=== PATIENT | male | born 1935 | race African-American/Black ===

== ENCOUNTER 2019-07-24 05:54 | Inpatient (IN) | payer MEDICARE, OTHER, SELFPAY ==
[2019-07-18 11:37] VITALS: BMI 23.7
[2019-07-24] VITALS (17 sets, daily range): BP systolic 74–163; BP diastolic 40–89; PULSE 68–113; RESP 6–24; TEMP 35.7–36.8; O2SAT 73–100; BMI 21.6
--- NOTE | 2019-07-24 | DI.RAD.S_ITS ---
PROCEDURE: XR C-ARM UP TO 60 MIN COMPARISON: None. INDICATIONS: INTEROPERATIVE RIGHT HIP FINDINGS: No images were obtained. IMPRESSION: Fluoroscopy guidance was provided intraoperatively for right hip surgery. No images were obtained. Dictated by: Demetri Avila M.D. on 08/25/2019 at 15:48 Approved by: Demetri Avila M.D. on 08/25/2019 at 15:52
--- NOTE | 2019-07-24 06:00 | DI.RAD.S_ITS ---
PROCEDURE: XR HIP W PEL IF DONE RT 2V INDICATIONS: post operative right hip TECHNIQUE: AP pelvis and lateral view of the right hip acquired. COMPARISON: [facility], CR, XR PELVIS 1 OR 2 VIEWS, 06/16/2019, 11:56. FINDINGS: Bones: Patient is status post interval redo right hip arthroplasty, with hardware components in expected positions. The hip joint appears congruent. The visualized bony structures appear intact. Soft tissues: Overlying postoperative changes are noted. No suspicious soft tissue densities. Left femoral artery in tandem stents. Staple line overlying the right hip. IMPRESSION: Satisfactory appearance of the right total hip redo arthroplasty. Dictated by: Chuy Mcgovern M.D. on 07/24/2019 at 12:44 Approved by: Chuy Mcgovern M.D. on 07/24/2019 at 12:46
[2019-07-24] MEDS: PREGABALIN 75 MG CAPSULE PO (07:01)
[2019-07-24] MEDS: CELECOXIB 200 MG CAPSULE PO (07:01)
[2019-07-24] MEDS: ACETAMINOPHEN 325 MG TABLET 975 MG PO (07:01)
[2019-07-24] MEDS: LACTATED RINGERS 1,000 ML 42 ML IV ×2 (07:10→09:27)
--- NOTE | 2019-07-24 07:45 | PM.PREOP ---
Pre-operative Note Interval Note History & Physical reviewed/Exam performed by Physician: Yes Changes to H&P: No H&P completed within 30 days and has changed as indicated here:: Plan for revision R FRANKI
[2019-07-24] MEDS: CEFAZOLIN 2 GM/100 ML FROZ.PIGGY IV ×2 (08:00→16:35)
--- NOTE | 2019-07-24 08:29 | SUR.OPER ---
Lateral on padded OR bed. Gel axillary roll. Arms secured on padded armboard with pillow supporting top arm. Padded hip positioner braces x4 - anterior and posterior chest and pelvis. Additional gel pad used anterior pelvis. Gel pad under bottom leg from knee to foot and secured with tape over sheet.
[2019-07-24] MEDS: ROPIVACAINE 0.5% PF 5 MG/ML 20ML VIAL 60 ML INJ (09:14)
[2019-07-24] MEDS: KETOROLAC 30 MG/ML VIAL IV (09:14)
[2019-07-24] MEDS: VANCOMYCIN 1,000 MG VIAL 1000 MG TOP (09:14)
[2019-07-24] MEDS: MORPHINE 4 MG/ML INJ INJ (09:15)
--- NOTE | 2019-07-24 11:44 | P.OP_ITS ---
Operative Date/Time/Diagnoses Date of procedure: 07/24/19 Time of procedure: 11:44 Pre-op diagnosis: subsided R FRANKI Post-op diagnosis: same Procedure & Clinicians Procedure: Revision right total hip arthroplasty. Same procedure as scheduled: Yes Indications: Subsided right femoral stem, leg length discrepancy. Surgeon: Abhilash Connor Enhanced Environmental Operator: Macie Garcia Anesthesia Type: General Operative Notes Findings: Subsided loose femoral stem. Closure Type: non-primary Specimen(s): other (Three tissue cultures sent.) Prosthetic devices, grafts, tissues, transplants, or devices: Garcia [employer] Nephew R3 56 x 36 mm poly. Biomet Jasen 18 mm x 190 mm stem with a size a 60 mm proximal body Biomet -3 cobalt chrome head. Estimated Blood Loss (mL): 400 Blood products transfused: none Procedure in detail: Patient was met in the preoperative holding area where the site and side of surgery marked by MD. All last minute questions were answered. Patient was brought back in the operating room where he was induced under general anesthesia using placed in the left lateral decubitus position all bony prominences were well padded. The right hip was then prepped and draped in normal sterile fashion. The previous surgical scar was marked out. Surgical time-out was performed verifying the site and side of surgery as well as the name of the patient. The previous surgical scar was ellipsed out using a 10 blade. A combination of 10 blade and electrocautery used to dissect down to the level of the ITB and all sutures counter long way from previous surgery remained were removed. ID band was incised using 10. Blade. A combination of blunt dissection and sharp dissection was used to free up the ID band from the underlying musculature. A Cobra was placed over the anterior aspect of the trochanter. The previous short external rotator repair was taken down and a capsular flap was created intact. Three cultures were taken at this point. At this point and focus on freeing up scar tissue which was dissected away using combination of electrocautery and sharp dissection. At this point the hip was then dislocated the head was removed from the trunnion of the implant. The stem was noted to be grossly loose. A high-speed bur was used to free up the lateral shoulder of the implant from the overgrown greater trochanter. The process chemist handle for the stem was then screwed into place and the stem was malleted out. At this point a cement extractors used to remove the film from inside the femoral canal. A short sharp tip drill was used at this point to try to gain access to the femoral canal I had difficulty with this point and I was concerned that had perforated the cortex. A blunt tip canal finer was used and would not perforate the cortex but a thinner guid tip guidewire would perforate through the cortex. This point fluoroscopy was used to verify our positioning and a stiff conical Reamer was used to open the canal. This was then followed by placing a ball-tipped guidewire under fluoroscopic imaging down the center of the canal. Flexible reamers were then used to open up the canal. This was then followed by conical Jasen reamers in size 190. Began with a size 15 went to up to a size 18 1 mm at a time. This was reamed to a depth of 80 at the tip of the greater trochanter. The final Jasen stem 190 x 18 mm was selected with the flange anteriorly. This was malleted into place. The proximal body was then prepped off the final stem. We trialed with multiple iterations of proximal body length and femoral head length. We determined that a size 60 proximal body size a was appropriate size. Trials were then removed and the femur was retracted anteriorly with a Cobra which lasted visualized the acetabular cup this was removed with the extractor. A new polyethylene liner was then malleted into place. The wound was thoroughly irrigated with normal saline followed by iodine followed by pulse lavage. The final implanted proximal body was placed and the screw was torqued into place. A size 36 chromium head -3 was selected and malleted onto the trunnion. This was then reduced and brought through final range of motion. The capsular flap was repaired to the gluteus medius and short external rotators were repaired back to the posterior aspect of the greater trochanter. The ITB was closed using 1. Vicryl followed by running 1. Vicryl in the superior gluteal fascia followed by 1. Vicryl running in the fat layer. This was followed by a 2. Vicryl in the subcutaneous layer followed by thaddeus on skin and an Aquacel dressing. Complications: none Post-operative Condition: stable Disposition: PACU Plan for aftercare: Partial weight bearing RLE, posterior hip precautions
--- NOTE | 2019-07-24 12:10 | SUR.PHASEI ---
Patient arrived in PACU with oral airway. Hypotensive. RN did jaw thrust, fluids wide open and placed in reverse trendleburg.
--- NOTE | 2019-07-24 12:11 | SUR.PHASEI ---
Oral airway out. HOB at 30 degrees. Patient QUIROGA's x 4. Denies pain and tolerating ice chips.
[2019-07-24] MEDS: LACTATED RINGERS 1,000 ML 125 ML IV (13:39)
--- NOTE | 2019-07-24 14:52 | PC.NURSE ---
Patient arrives to floor alert and oriented. CMS intact. Patient denies pain. Ordered IV fluids administered. SCDs placed. Surgical site CDI. Ice pack in place. Care is ongoing.
[2019-07-24 16:12] LABS: Add Manual Diff / Slide Review NO; Basophils Absolute Auto 100 /uL (0-100); Basophils Percent Auto 0.5 % (0-2); Eosinophils Absolute Auto 0 /uL (0-450); Eosinophils Percent Auto 0.2 % (2-4); Hematocrit 32.5 % (41-53); Lymphocytes Absolute Auto 1300 /uL (1100-4500); Lymphocytes Percent Auto 7.9 % (25-40); Mean Corpuscular HGB Conc 33.8 % (30-36); Mean Corpuscular Hemoglobin 31.1 PG (26-34); Monocytes Absolute Auto 1100 /uL (0-900); Monocytes Percent Auto 6.7 % (3-14); Neutrophils Absolute Auto 14100 /uL (1500-7000); Neutrophils Percent Auto 84.7 % (50-75); Platelet Count 189 X10^3/uL (150-400); Red Blood Cell Count 3.53 X10^6/uL (4.5-5.9); Red Cell Distribution Width 13.7 % (11.6-14.8); White Blood Cell Count 16.7 X10^3/uL (4.5-11.0)
[2019-07-24] MEDS: ACETAMINOPHEN 325 MG TABLET 650 MG PO ×2 (16:37→20:14)
--- NOTE | 2019-07-24 16:50 | PC.NURSE ---
Addendum entered by Lizett Bonilla R.N. 07/24/19 22:22: MD return call, 1000cc bolus infusing as per orders. Will assess ability to void. Call light w/in reach, bed alarm on for pt safety. Continue w/plan of care. Addendum entered by Lizett Bonilla R.N. 07/24/19 20:25: Pt had 200cc emesis at this time. B/P 95/48 P= 104 Pt has not voided since prior to surgery, Bladder scan = 11cc. Call placed to Dr. Connor. Call light w/in reach, bed alarm on for pt safety. Original Note: Pt resting quietly at this time. Denies discomfort Lungs clear, SpO2 96% RA IV LR @ 125cc/hr infusing into the right arm via pump w/o incidence Aquacell dsg CDI. Call light w/in reach. Bed alarm on for pt safety.
--- NOTE | 2019-07-24 17:11 | PT-IP ANOTE ---
Attempted physical therapy evaluation. Pt sat up on edge of bed. He c/o feeling light-headed. Pt started becoming less responsive so he was returned to supine. Vital Signs: Initial return to supine BP 78/63 and HR 240 Supine BP 67/41, HR 103 Trendelenburg position: BP 96/67 and HR 97 Return to flat in supine BP 77/51 and HR 98 He immediately became more responsive once back in supine. He symptoms of being light headed slowly resolved when back in bed. His Nurse and TRANSITION RN were notified. Pt left lying flat in bed with friends arrival to visit. Post-op packet left in his room. Posterior hip precautions posted in his room. Will follow-up tomorrow.
[2019-07-24] MEDS: DOCUSATE 100 MG CAPSULE PO (20:14)
[2019-07-24] MEDS: raNITIdine 150 MG CAPSULE PO (20:14)
[2019-07-24] MEDS: ASPIRIN EC 81 MG TABLET PO (20:15)
[2019-07-24] MEDS: SODIUM CHLORIDE 0.9% 1,000 ML 1000 ML IV (22:19)
[2019-07-25] VITALS (8 sets, daily range): BP systolic 94–127; BP diastolic 44–70; PULSE 97–111; RESP 15–18; TEMP 35.9–37.6; O2SAT 93–98
[2019-07-25] MEDS: CEFAZOLIN 2 GM/100 ML FROZ.PIGGY IV (00:53)
[2019-07-25] MEDS: LACTATED RINGERS 1,000 ML 125 ML IV ×2 (01:00→11:09)
[2019-07-25 05:28] LABS: Hematocrit 21.6 % (41-53); Hemoglobin 7.4 g/dL (13.5-17.5)
--- NOTE | 2019-07-25 06:59 | PC.NURSE ---
Pt is AxOx3, Vitals are much better than previous shift. However when we tried to get patient to stand up to void in urinal his SBP dropped into the high 70s, HR 130s, and he vomitted 100cc bile. He had not voided since surgery, bladder scanned at [address] Connor notified and said to straight cath patient. He had a straight cath at 0600 which put out 200mL of tres urine. He reports no pain. IVF running
--- NOTE | 2019-07-25 07:44 | P.PN_ITS ---
Subjective Subjective Date Patient Seen: 07/25/19 Time Patient Seen: 07:44 Interval history: Patient is POD#1 s/p right total hip revision with Dr. Connor. Pain has been well controlled. He has not mobilized yet with PT. One episode of emesis and lightheadedness when he attempted to sit at edge of bed. Denies any chest pain or shortness of breath. Exam Vital Signs (past 8 hours): - 07/24/19 23:50 07/25/19 05:07 Temperature 97.5 F L 96.7 F L Pulse Rate 108 H 97 H Respiratory Rate 24 16 Blood Pressure 105/56 L 127/55 L Pulse Oximetry 93 93 Oxygen Delivery Method Room Air Oxygen Flow Rate 0 Narrative Exam Narrative: 84 year old male resting comfortably in bed. Alert and oriented in no acute distress. Dressing in place over right hip is CDI, minimal shadow drainage. Patient able to flex and extend the foot and ankle. Palpable pedal pulse. Objective Labs Result Diagrams: 07/25/19 05:10 Labs: Laboratory Results - last 24 hr 07/24/19 07/25/19 13:48 05:10 WBC 16.7 H RBC 3.53 L Hgb 11.0 L 7.4 L Hct 32.5 L 21.6 L MCV 92.0 MCH 31.1 MCHC 33.8 RDW 13.7 Plt Count 189 Neut % (Auto) 84.7 H Lymph % (Auto) 7.9 L [place] % (Auto) 6.7 Eos % (Auto) 0.2 L Baso % (Auto) 0.5 Neut # (Auto) 66552 H Lymph # (Auto) 1300 [place] # (Auto) 1100 H Eos # (Auto) 0 Baso # (Auto) 100 Assessment & Plan Assessment & Plan narrative: Patient progressing as expected postoperatively. Does have some anemia due to blood loss from surgery with symptomatic hypotension. H&H this morning of 7.4/21.6. Will bolus 1L and reevaluate. Has not voided since surgery, likely from spinal anesthesia. Will place prieto catheter for 24hrs then remove. Will mobilize with PT. Patient is to follow posterior hip precautions with partial weight bearing of 50%. Likely discharge to home in the next 1-2 days. Quality VTE Deep Vein Thrombosis/Pulmonary Embolism Present on Admission: No
[2019-07-25] MEDS: SODIUM CHLORIDE 0.9% 1,000 ML 1000 ML IV (07:57)
[2019-07-25] MEDS: ACETAMINOPHEN 325 MG TABLET 650 MG PO ×3 (08:50→20:26)
[2019-07-25] MEDS: ASPIRIN EC 81 MG TABLET PO ×2 (08:50→20:26)
[2019-07-25] MEDS: DOCUSATE 100 MG CAPSULE PO ×2 (08:50→20:26)
[2019-07-25] MEDS: raNITIdine 150 MG CAPSULE PO ×2 (08:50→20:26)
[2019-07-25] MEDS: ROSUVASTATIN 10 MG TABLET 5 MG PO (08:50)
--- NOTE | 2019-07-25 11:34 | PT.IIE ---
Current Diagnoses Broken internal right hip prosthesis, initial encounter (07/24/19) Surgery Performed Operation Date: 07/24/19 07:45 Actual Procedures p Total Hip Arthroplasty Revision - both components(Right) - Abhilash Connor MD Surgical History (Last Updated 07/18/19 @ 12:32 by Jeannie Blanton, RN) History of arthroplasty of left hip (Acute 01/31/15) History of arthroplasty of right hip (Acute ~09/2013) History of lymph node excision (Acute) Hx of bilateral cataract extraction (Acute) Hx of cardiac catheterization (Acute ~04/2013) Hx of heart artery stent (Acute ~2007) Medical History (Last Updated 07/18/19 @ 12:00 by Jeannie Blanton RN) Aortic valve disorder (Acute) CAD (coronary artery disease) (Acute) Cardiomyopathy (Acute) CKD (chronic kidney disease), stage III (Acute) GERD (gastroesophageal reflux disease) (Acute) History of colon polyps (Acute) HTN (hypertension) (Acute) Orthostatic hypotension (Acute 01/31/15) Osteoarthritis (Acute) Postoperative anemia (Acute) Pulmonary sarcoidosis (Acute) PVD (peripheral vascular disease) (Acute) Renal insufficiency (Acute) Stenosis of peripheral vascular stent (Acute ~2009) Physical Therapy Inpatient Evaluation/Re-Eval M1 PT/OT-IP Prior Functional Status Start: 07/25/19 08:44 Freq: NEEDED Status: Active Protocol: Document 07/25/19 11:02 AW (Rec: 07/25/19 11:34 AW [id number]) Medical Review Prior Functional Status Medical History Reviewed Yes Diet/Fluid Consistency Regular Communication WNL Mobility and Gait Pt reports pain has been worsening and he has been using a SPC ~50% of the time for the past three months and was limited to long parking lot distances. Activities of Daily Living and IADL's Pt reports he has been independent with ADL's although slower than normal with LB dressing tasks. Prior Functional Level (Other details) Pt drives. Social History Household Members spouse,children Living Arrangements House Number of Floors (Floors) One Floor Number of Stairs To Enter/Railing? 2 HEATHER through garage. Shelves available for balance but not for weightbearing. Home Environment High Toilet,Walk in Shower Home Equipment Front Wheel Walker,Straight Cane,Manual Wheelchair,Raised Toilet Seat w/Armrests,Long Handled Shoe Horn Employment Status Retired Additional Social History Comment Pt is retired from the [employer]. He lives with his , Nicole, and his daughter, Nakita. His sister, Elaine, lives in [place] but is staying with the family as long as needed in order to provide additional help during recovery. M2 PT-IP Current Condition Start: 07/25/19 08:44 Freq: NEEDED Status: Active Protocol: Document 07/25/19 11:02 AW (Rec: 07/25/19 11:34 AW [id number]) Physical Therapy Current Condition Current Condition Evaluation Date 07/25/19 Treatment Diagnosis R FRANKI revision, impaired mobility Onset Date 07/24/19 Precautions Posterior Hip Precautions No Hip Flexion > 90 degrees,No Hip Internal Rotation,No Hip Adduction Weight Bearing Status Weight Bearing Status Partial Weight Bearing Allowed Weight Bearing Amount (enter % 50% RLE or #) (%) M3 PT-IP Subjective Start: 07/25/19 08:44 Freq: NEEDED Status: Active Protocol: Document 07/25/19 11:02 AW (Rec: 07/25/19 11:34 AW [id number]) Subjective Physical Therapy Visit Type Type Initial Evaluation Visit Start Time 10:00 Visit Stop Time 10:30 Total Visit Minutes 30 Notes WB orders unclear at time of eval. One order stated PWB without percentage. Second order stated WBAT. Proceeded with TTWB for evaluation. Was able to clarify with PA after eval that WB status should be 50%. PA to update orders. H&H low this mornin.4/21.6 Physical Therapy Visit Comments Patient Comments Pt is willing to participate with PT Patient Goals Pt hopes to discharge home with assist from his family Therapy Pain Assessment Pain When Pain Assessed During Mobility Pain Present Pain Present Denied Pain M4 PT-IP Mobility and Gait Start: 07/25/19 08:44 Freq: NEEDED Status: Active Protocol: Document 07/25/19 11:02 AW (Rec: 07/25/19 11:34 AW [id number]) PT-Bed Mobility Assessment Supine to Sit Supine to Sit Contact Guard Assistance,1 Person Assistance,Head of Bed Elevated,Bedrails Scooting Scooting to Edge of Bed Standby Assistance PT-Transfer Assessment Sit to and From Stand Sit to and from Stand Contact Guard Assistance,1 Person Assistance,Use of Upper Extremities Equipment Transfer Assistive Device Gait Belt,Front Wheeled Walker Orthotic/Prosthetic Devices or Brace: No Transfers Transfer Destination Chair Transfer Technique Stand Step Pivot Transfer Ability Level of Assist Contact Guard Assistance, Minimal Assistance,1 Person Assistance,Use of Upper Extremities Comments Mobility Comments Pt was sitting up in bed upon PT arrival. With HOB elevated ~45 degrees, BP was 85/59 and HR 125. After supine exercise, BP nicole to 131/72 and HR 125. Pt completed supine to sit with HOB elevated, use of bed rails, CGA to support his operative leg, and cues to maintain hip precautions. Sitting EOB, BP was 109/49 and HR 141 with pt reporting no symptoms of lightheadedness, nausea, or shoulder/neck pain. Pt was able to stand using FWW CGA and cues to maintain upright trunk to avoid flexion >90 degrees. He stood using FWW and with TTWB to 25% PWB on the RLE and pivot transferred to the chair by pivoting on his left foot. Pt was positioned in the chair with legs elevated, call light and table within reach. BP sitting in chair was 105/52 and HR 141. Gait Assessment Gait Gait Assistance Required: Contact Guard Assist Distance (Feet) 2 Able to Maintain Weight Bearing Status Yes During Gait Assistive Devices Assistive Device Gait Belt,Front Wheeled Walker Orthotic/Prosthetic Devices or Brace: No Gait Deviations General Gait Pattern Antalgic,Flexed Trunk Factors Limiting Gait Function Factors Limiting Gait Function Decreased Activity Tolerance, Decreased Strength,Limited Range of Motion Comments Gait Comments See mobility comments Stair Climbing Assessment Comments Stair Climbing Comments Not assessed. PT-Balance Assessment Sitting Balance and Reactions Static Sitting Balance Ability Good Dynamic Sitting Balance Ability Good Standing Balance and Reactions Static Standing Balance Ability Good Dynamic Standing Balance Ability Fair Device Used FWW M5 PT-IP Objective Assessments Start: 07/25/19 08:44 Freq: NEEDED Status: Active Protocol: Document 07/25/19 11:02 AW (Rec: 07/25/19 11:34 AW [id number]) Orientation Orientation/Cognition Level of Alertness Confusional State Orientation Name,Month,Place,Situation Language Function Ability No Deficits Noted Safety Awareness Decreased Safety Awareness Comments Pt had difficulty recalling posterior hip precautions. Gross Range of Motion Upper Extremity ROM Assessment Within Functional Limits Lower Extremity ROM Assessment Right Impaired Strength Upper Extremity Strength Assessment Within Functional Limits Lower Extremity Strength Assessment Right Impaired Hip L 4/5 Knee L 5/5 Ankle B 4+/5 Coordination Assessment Gross Coordination Gross Coordination WNL Sensation Assessment Sensation Gross Sensation WNL Muscle Tone Muscle Tone WNL No Muscle Tone Location Bilateral Upper Extremity Severity of Tone Mild Manifistation of Tone Resting Tremors Comments Muscle Tone Comments Pt states BUE tremors were not present prior to surgery. M6 PT-IP Treatment Start: 07/25/19 08:44 Freq: NEEDED Status: Active Protocol: Document 07/25/19 11:02 AW (Rec: 07/25/19 11:34 AW [id number]) Physical Therapy Treatment Exercises Exercises Ankle Pumps,Gluteal Sets,Quad Sets,Heel Slides Education Education Provided Precautions,Weight Bearing Status,Post-Op Packet,Safety Other Treatments Other Treatment Performed Provided education on role of PT, plan of care, weightbearing status, and safe use of FWW. M7 PT-IP Assessment and Plan Start: 07/25/19 08:44 Freq: NEEDED Status: Active Protocol: Document 07/25/19 11:02 AW (Rec: 07/25/19 11:34 AW [id number]) PT Summary Assessment and Plan Potential Rehabilitation Potential Good Status of Condition at Evaluation Evolving Summary Impairments Pain,ROM,Strength,Balance, Cognition,Bed Mobility, Transfers,Gait,Activity Tolerance Assessment Summary Fran is an 84 yo man seen for PT evaluation on POD1 following R FRANKI revision with posterior approach. At time of evaluation, WB status was unclear with orders for both WBAT and PWB (without percentage). Ortho PA since clarified that WB status should be PWB 50% RLE. At baseline, this patient was able to walk long parking lot distances with or without SPC and had been using a SPC ~50% of the time recently due to increased hip pain. On evaluation, pt was able to complete bed mobility and transfer to chair CGA with FWW . He had difficulty remembering his posterior hip precautions and will require frequent reorientation to same . Pt will need to be seen again to assess gait with FWW, stairs, and to initiate caregiver training with family - his sister, in particular. Depending on progress with acute care PT, pt will likely be safe to discharge home with family assist and home health vs outpatient PT. Goals Bed Mobility Goal Independent Transfer Goal Standby Assistance,Front Wheeled Walker Gait Goal Standby Assistance,Front Wheel Walker Gait Distance 150 Other Goals -up/down 2 stairs with SPC or LRAD to maintain 50% PWB RLE SBA Days to Meet Goals 5 Frequency of Treatment Frequency Of Treatment Twice a Day Treatment Plan Physical Therapy Treatment Plan Bed Mobility Training,Transfer Training,Gait Training, Therapeutic Exercise,Balance Retraining,Post Op Education, Discharge Planning,Hot or Cold Pack,Neuromuscular Re-ed, Coordination Retraining,Manual Therapy Other Recommendations and Next Treatment review hip precautions; gait Focus training with FWW 50% PWB RLE; assess stairs if able; Recommendations To Nursing Amount of Assist Needed 1 Person Assist Discharge Recommendations PT Discharge Recommendations Home with Assistance,Home Health,Outpatient PT Other Discharge Recommendations home with assist and HH vs OP PT depending on progress Transportation Needs at Discharge Private Vehicle
--- NOTE | 2019-07-25 11:55 | PC.NURSE ---
Addendum entered by Leona Nath R.N. 07/25/19 13:57: Patient has not voided but a couple of drops in the urinal. came around to see patient and states to place a catheter. He has been drinking plenty of water , just difficulty urinating. Original Note: Patient has been having issues with voiding. He is trying to use the urinal right now. If unable, we will bladder scan him and then place a prieto for 24 hours. Dressing to hip is cdi, up with PT and patient is 50% weight bearing on his r.hip. Up in chair now, and he is going to have his lunch.
--- NOTE | 2019-07-25 13:27 | CM.DANOTE ---
Patient is an 84 year old male who was admitted on 07/24/19 for Hip surgery. Pt has [facility] and [employer] for insurance and his PCP is Dr. Raghav Carpenter. EMR was reviewed. Per MD, pt had surgery yesterday and tolerated well but PT had to postpone inital eval due to BP issues. Per RN, pt has had some urinary retention issues. Per PT eval today, recommending safe d/c home with family assist and outpt vs HH pending progress. SW met bedside with pt and explained role and updated white board and pt confirms he lives at home in [place] with his spouse, adult Dtr, and now sister has flown in to stay and provide additional assist at d/c. Pt denies any hx of HH or SNF and SW discussed the current recommendation of HH vs outpt PT and discussed HH services and frequency. Pt states he thinks his preference is to d/c home with his established outpt PT provider and declines HH at this time. Pt confirms that his sister plans to provide transport home when stable and pt is hopeful he will be able to d/c by tomorrow. Plan: SW to follow to confirm pt still declines HH and stable for d/c home with multiple family member assist and outpt PT. BO Szymanski Discharge Planning/Care Management CM Discharge Assessment Start: 07/25/19 13:25 Freq: Status: Active Protocol: Document 07/25/19 13:25 BF (Rec: 07/25/19 13:27 [id number]) Discharge Planning Assessment Assigned Information Technology Teacher BO Guzman Advance Directives? Yes Advance Directives on File Yes History Provided By Patient,Medical Record Has Patient been admitted in last 30 No days? Prior Living Arrangements House Household Members spouse,children Type of transporation used prior to Relies on Others admit Independent with ADL's Yes Is patient alert and oriented? Yes Caregiver for Another No Patient/Family Preference OP PT Therapy Barriers to Discharge No Discharge Plan Home Community Services Physical Therapy Transportation Arrangement Sister plans to provide transport home when stable Referrals Initiated None needed Whiteboard Updated in Patient Room with Yes name and ext. # of Information Technology Teacher Review Status In Process Please Provide Date Initial DC 07/25/19 Assessment Was Performed Next Review Type Continued Stay Review Pre-Anesthesia Assessment Start: 07/18/19 11:37 Freq: Status: Active Protocol: Document 07/18/19 11:37 CAB (Rec: 07/18/19 12:19 CAB [id number]) Pre-Anesthesia Assessment PAC Comment Unable to reach pt for scheduled PAC phone assessment , chart review only. Patient Information Reviewed Via Chart Review Diagnostic Results EKG Comment Outside EKG 03/17/19 scanned in, no labs available at time of chart review Primary Care Provider Raghav Carpenter Seen Specialist in Last 12 Months Yes Specialist Seen Temporary Help Agency Referral Clerk,Orthopedist Primary Language [facility] Therapy Aide Required No Height 182.88 cm Weight 79.379 kg Body Mass Index (BMI) 23.7 Visual Assist Glasses Dentition Type Full- Upper Anesthesia Review Requested No alcohol intake current Smoking Status Never smoker Pain Present Pain Reported Musculoskeletal Symptoms Joint Pain Patient is completely paralyzed or No completely immobile Mental Status Oriented to own ability Currently Taking a Beta Mildred Yes: Carvedilol Hx Syncope or Dizziness Yes: Syncope-vasovagal Anti-Coagulant Therapy Yes: 81mg ASA daily Has a Temporary Help Agency Referral Clerk Yes: Dr. Diallo Cardiac Testing Yes: Echo 04/04/19 EF:55% Hx Pacemaker/ICD No Pacemaker Rep Required? No Comment Cardiac records scanned to record Diabetes No Presence of External or Internal Medical Yes: Cardiac stents x5, bilat Devices hip prosthesis, bilat eye lens , left femoral stent Marital Status Lives With spouse Advance Directives? Yes Advance Directives on File Yes
--- NOTE | 2019-07-25 15:59 | PT.IPTN ---
Current Diagnoses Broken internal right hip prosthesis, initial encounter (07/24/19) Surgery Performed Operation Date: 07/24/19 07:45 Actual Procedures p Total Hip Arthroplasty Revision - both components(Right) - Abhilash Connor MD Physical Therapy Treatment Note M2 PT-IP Current Condition Start: 07/25/19 08:44 Freq: NEEDED Status: Active Protocol: Document 07/25/19 11:02 AW (Rec: 07/25/19 11:34 AW [id number]) Physical Therapy Current Condition Current Condition Evaluation Date 07/25/19 Treatment Diagnosis R FRANKI revision, impaired mobility Onset Date 07/24/19 Precautions Posterior Hip Precautions No Hip Flexion > 90 degrees,No Hip Internal Rotation,No Hip Adduction Weight Bearing Status Weight Bearing Status Partial Weight Bearing Allowed Weight Bearing Amount (enter % 50% RLE or #) (%) M3 PT-IP Subjective Start: 07/25/19 08:44 Freq: NEEDED Status: Active Protocol: Document 07/25/19 15:44 AW (Rec: 07/25/19 15:59 AW [id number]) Subjective Physical Therapy Visit Type Type Treatment Note Visit Start Time 15:24 Visit Stop Time 15:42 Total Visit Minutes 18 Notes WB status has been clarified to 100# RLE or ~50% Number of IMAGE EDITOR Visits 0 Physical Therapy Visit Comments Patient Comments Pt resting in bed but willing to participate with PT Therapy Pain Assessment Pain When Pain Assessed During Mobility Pain Present Pain Present Pain Reported Location right hip Intensity 4 Scale Used Numeric (1 - 10) Pain Management Techniques Re-positioning,Timing of Activity with Medications M4 PT-IP Mobility and Gait Start: 07/25/19 08:44 Freq: NEEDED Status: Active Protocol: Document 07/25/19 15:44 AW (Rec: 07/25/19 15:59 AW [id number]) PT-Bed Mobility Assessment Supine to Sit Supine to Sit Standby Assistance,1 Person Assistance Sit to Supine Sit to Supine Standby Assistance,1 Person Assistance Scooting Scooting to Edge of Bed Standby Assistance Scooting Up and Down in Bed Standby Assistance PT-Transfer Assessment Sit to and From Stand Sit to and from Stand Contact Guard Assistance,1 Person Assistance,Use of Upper Extremities Equipment Transfer Assistive Device Gait Belt,Front Wheeled Walker Orthotic/Prosthetic Devices or Brace: No Transfers Transfer Destination Bed Transfer Technique pt ambulated with FWW Transfer Ability Level of Assist Standby Assistance,Use of Upper Extremities Comments Mobility Comments Pt sitting up in bed upon PT arrival. With HOB flat, pt completed supine to sit SBA and without use of bed features. He did require one cue to maintain posterior hip precautions. Gait Assessment Gait Gait Assistance Required: Contact Guard Assist Distance (Feet) 100 Able to Maintain Weight Bearing Status Yes During Gait Assistive Devices Assistive Device Gait Belt,Front Wheeled Walker Orthotic/Prosthetic Devices or Brace: No Gait Deviations General Gait Pattern Antalgic,Decreased Stride Length,Decreased Feet Clearance,Flexed Trunk,Step-to Gait,Wide Based Gait Factors Limiting Gait Function Factors Limiting Gait Function Decreased Activity Tolerance, Decreased Strength,Limited Range of Motion Comments Gait Comments Pt ambulated in the halls after reviewing weightbearing status of 50% on RLE. He ambulated with FWW CGA with one posterior loss of balance evident on initial standing from which he was able to recover independently. Pt denied symptoms of lightheadedness, nausea, neck/ shoulder pain. Gait was notable for circumduction of the RLE which pt attempted to correct by using the visual cue of lines on the floor tiles to ensure he was advancing his RLE in a straight line. Once pt was able to correct his circumduction, he appeared to vault on the RLE. Stair Climbing Assessment Comments Stair Climbing Comments Not assessed M5 PT-IP Objective Assessments Start: 07/25/19 08:44 Freq: NEEDED Status: Active Protocol: Document 07/25/19 11:02 AW (Rec: 07/25/19 11:34 AW [id number]) Orientation Orientation/Cognition Level of Alertness Confusional State Orientation Name,Month,Place,Situation Language Function Ability No Deficits Noted Safety Awareness Decreased Safety Awareness Comments Pt had difficulty recalling posterior hip precautions. Gross Range of Motion Upper Extremity ROM Assessment Within Functional Limits Lower Extremity ROM Assessment Right Impaired Strength Upper Extremity Strength Assessment Within Functional Limits Lower Extremity Strength Assessment Right Impaired Hip L 4/5 Knee L 5/5 Ankle B 4+/5 Coordination Assessment Gross Coordination Gross Coordination WNL Sensation Assessment Sensation Gross Sensation WNL Muscle Tone Muscle Tone WNL No Muscle Tone Location Bilateral Upper Extremity Severity of Tone Mild Manifistation of Tone Resting Tremors Comments Muscle Tone Comments Pt states BUE tremors were not present prior to surgery. M6 PT-IP Treatment Start: 07/25/19 08:44 Freq: NEEDED Status: Active Protocol: Document 07/25/19 15:44 AW (Rec: 07/25/19 15:59 AW [id number]) Physical Therapy Treatment Exercises Exercises Ankle Pumps,Gluteal Sets,Quad Sets,Heel Slides Education Education Provided Precautions,Weight Bearing Status,Safety Other Treatments Other Treatment Performed Reviewed clarification of WB status, including strategies for use of FWW to maintain 50% WB RLE M7 PT-IP Assessment and Plan Start: 07/25/19 08:44 Freq: NEEDED Status: Active Protocol: Document 07/25/19 15:44 AW (Rec: 07/25/19 15:59 AW [id number]) PT Summary Assessment and Plan Summary Progress Towards Goals Progressing Toward Goals Assessment Summary Pt was able to progress gait distance with 50% PWB RLE. Pt was aware of circumduction pattern and attempted to correct it but the correction resulted in vaulting gait on the RLE. Pt's sister, Elaine, was present for last part of treatment and was able to verbalize posterior hip precautions with good understanding. Goals Bed Mobility Goal Independent Transfer Goal Standby Assistance,Front Wheeled Walker Gait Goal Standby Assistance,Front Wheel Walker Gait Distance 150 Other Goals -up/down 2 stairs with SPC or LRAD to maintain 50% PWB RLE SBA Days to Meet Goals 4 Frequency of Treatment Frequency Of Treatment Twice a Day Treatment Plan Physical Therapy Treatment Plan Bed Mobility Training,Transfer Training,Gait Training, Therapeutic Exercise,Balance Retraining,Post Op Education, Discharge Planning,Hot or Cold Pack,Neuromuscular Re-ed, Coordination Retraining,Manual Therapy Recommendations To Nursing Amount of Assist Needed Standby Assistance Discharge Recommendations PT Discharge Recommendations Home with Assistance, Outpatient PT Other Discharge Recommendations home with assist and OP PT Transportation Needs at Discharge Private Vehicle
[2019-07-25] MEDS: FERROUS SULFATE 325 MG TABLET PO (18:00)
[2019-07-25] MEDS: ASCORBIC ACID 500 MG TABLET PO (20:26)
[2019-07-25] MEDS: OXYCODONE IR 5 MG TABLET PO (20:29)
--- NOTE | 2019-07-25 20:38 | PC.NURSE ---
Pt has had uneventful evening. Lungs clear, SpO2 98% RA Dsg to right hip CDI Voiding per urinal, clear yellow urine. IV fluids changed to HL Med at 2030 for discomfort. B/P remains low. Stable post op course. Call light w/in reach/ bed alarm on for pt safety. Continue w/plan of care.
[2019-07-26] VITALS (11 sets, daily range): BP systolic 98–142; BP diastolic 31–61; PULSE 88–121; RESP 14–18; TEMP 36.8–37.6; O2SAT 96
[2019-07-26] MEDS: OXYCODONE IR 5 MG TABLET PO (05:28)
[2019-07-26] MEDS: HYDROMORPHONE 2 MG TABLET PO ×2 (07:46→12:24)
--- NOTE | 2019-07-26 07:55 | PC.NURSE ---
Addendum entered by Brigette Padilla R.N. 07/26/19 12:54: TRANSFUSION - rec'd call from Silverio MATUTE and new order rec'd to transfuse x 1 unit prbc and recheck HH in am. Addendum entered by Brigette Padilla R.N. 07/26/19 12:27: PAIN/VITALS - pt states earlier dilaudid provided adequate relief, bp 142/31, [facility]19.[facility] and spoke to triage nurse, who called Silverio Jain's cell phone who is in surgery with Dr. Og, Pacheco in surg with Dr. Orellana and also followed up with a fax to pa's in surgery, after lunch given coreg and 2mg po dilaudid. Addendum entered by Brigette Padilla R.N. 07/26/19 09:53: MS/PAIN - up to dangle position with phys therapy, denies dizziness, ambul in hallway w/fww, gait slow, steady, taken for stair practice, ret via wc, smiling, states earlier dilaudid providing adequate relief, pain 5-6 on scale 0/10. Addendum entered by Brigette Padlila R.N. 07/26/19 08:28: PAIN/VITALS - discussed pain mgt with Mariana MATUTE, vitals, new orders rec'd, pt states the dilaudid is beginning to work and reduce his pain from 9 to 7 on scale 0/10. Original Note: AM NOTE - pt is awake at bedside shift report, wincing with discomfort, states earlier oxycodone did not provide relief and his pain currently in 9 on scale 0/10 r hip, hr 102, ra 94%, + bt, no nausea, not passing flatus yet, abd soft, discussed pain mgt, narcotics, constipation, declines prune juice, given 2mg po dilaudid now with juice and crackers, states do dizziness yesterday when up.
--- NOTE | 2019-07-26 08:35 | PM.PNPO.1 ---
Subjective Subjective Date Patient Seen: 07/26/19 Time Patient Seen: 07:57 Interval history: Patient is POD#2 s/p right total hip revision with Dr. Connor. Yesterday patient was hypotensive and dizzy. Received 1L NS bolus and BP responded. Overnight patient states his pain gradually increased from 1/10 to 9/10. Located in medial anterior thigh only. Denies numbness, tingling. Had difficulty voiding yesterday, but has no difficulty today. Mobilizing with PT. Denies fever, chills, chest pain, shortness of breath, dizziness, nausea. Exam Vital Signs (past 8 hours): - 07/26/19 04:20 Temperature 99.4 F Pulse Rate 109 H Respiratory Rate 14 Blood Pressure 125/61 Pulse Oximetry 96 Oxygen Delivery Method Room Air Oxygen Flow Rate 0 Narrative Exam Narrative: 84 year old male is laying comfortably in bed, in no apparent distress. A&Ox3. Dressing CDI, SCDs in place. Sensory function grossly intact to light touch in LE BL. Able to actively dorsiflex/plantar flex LE BL. Calves warm, soft, compressible, non tender to palpation BL. Dorsalis pedis 1+ (doppler) BL. Objective Labs Result Diagrams: 07/27/19 05:10 Assessment & Plan Post-op Postoperative Procedures: Procedures Operation Date: 07/24/19 07:45 Actual Procedures Side Surgeon p Total Hip Arthroplasty Revision - both components Right Abhilash Connor MD Postoperative plan narrative: Change pain management - switched to dilaudid 2mg PO Continue mobilizing with PT SCDs for DVT prophylaxis Time Spent With Patient Time with patient: less than 15 minutes Quality VTE Deep Vein Thrombosis/Pulmonary Embolism Present on Admission: No
[2019-07-26] MEDS: ASCORBIC ACID 500 MG TABLET PO ×2 (08:59→20:30)
[2019-07-26] MEDS: ACETAMINOPHEN 325 MG TABLET 650 MG PO ×3 (08:59→20:30)
[2019-07-26] MEDS: DOCUSATE 100 MG CAPSULE PO ×2 (08:59→20:30)
[2019-07-26] MEDS: FERROUS SULFATE 325 MG TABLET PO ×2 (08:59→18:24)
[2019-07-26] MEDS: MAGNESIUM HYDROXIDE 30 ML UDC PO (09:00)
[2019-07-26] MEDS: ROSUVASTATIN 10 MG TABLET 5 MG PO (09:00)
[2019-07-26] MEDS: ASPIRIN EC 81 MG TABLET PO ×2 (09:00→20:32)
[2019-07-26] MEDS: raNITIdine 150 MG CAPSULE PO ×2 (09:00→20:32)
[2019-07-26] MEDS: SODIUM CHLORIDE 0.9% FLUSH 10 ML IV (10:22)
--- NOTE | 2019-07-26 10:45 | PT.IPTN ---
Current Diagnoses Broken internal right hip prosthesis, initial encounter (07/24/19) Surgery Performed Operation Date: 07/24/19 07:45 Actual Procedures p Total Hip Arthroplasty Revision - both components(Right) - Abhilash Connor MD Physical Therapy Treatment Note M2 PT-IP Current Condition Start: 07/25/19 08:44 Freq: NEEDED Status: Active Protocol: Document 07/25/19 11:02 AW (Rec: 07/25/19 11:34 AW [id number]) Physical Therapy Current Condition Current Condition Evaluation Date 07/25/19 Treatment Diagnosis R FRANKI revision, impaired mobility Onset Date 07/24/19 Precautions Posterior Hip Precautions No Hip Flexion > 90 degrees,No Hip Internal Rotation,No Hip Adduction Weight Bearing Status Weight Bearing Status Partial Weight Bearing Allowed Weight Bearing Amount (enter % 50% RLE or #) (%) M3 PT-IP Subjective Start: 07/25/19 08:44 Freq: NEEDED Status: Active Protocol: Document 07/26/19 09:30 HH (Rec: 07/26/19 10:45 HH [email or web address]) Subjective Physical Therapy Visit Type Type Treatment Note Visit Start Time 09:30 Visit Stop Time 10:05 Total Visit Minutes 35 Notes WB status has been clarified to 100# RLE or ~50% Per ANCA Machuca, pt had dilaudid earlier in the morning which possibly slow down his response. Number of TOP CARRIER Visits 0 Physical Therapy Visit Comments Patient Comments Pt resting in bed but willing to participate with PT Therapy Pain Assessment Pain When Pain Assessed During Mobility Pain Present Pain Present Pain Reported Location right hip Intensity 3 Scale Used Numeric (1 - 10) Pain Management Techniques Re-positioning,Timing of Activity with Medications M4 PT-IP Mobility and Gait Start: 07/25/19 08:44 Freq: NEEDED Status: Active Protocol: Document 07/26/19 09:30 HH (Rec: 07/26/19 10:45 HH [id number]) PT-Bed Mobility Assessment Supine to Sit Supine to Sit Standby Assistance,1 Person Assistance Sit to Supine Sit to Supine Standby Assistance,1 Person Assistance Scooting Scooting to Edge of Bed Standby Assistance Scooting Up and Down in Bed Standby Assistance PT-Transfer Assessment Sit to and From Stand Sit to and from Stand Contact Guard Assistance,1 Person Assistance,Use of Upper Extremities Equipment Transfer Assistive Device Gait Belt,Front Wheeled Walker Orthotic/Prosthetic Devices or Brace: No Transfers Transfer Destination Bed Transfer Technique pt ambulated with FWW Transfer Ability Level of Assist Standby Assistance,Use of Upper Extremities Comments Mobility Comments Pt resting in bed upon PT arrival. Reports he didnt sleep much but agreeable to mobilize with PT. With HOB flat, he completed supine to sit with the use of gait belt to pivot his R LE to L EOB. He then stood up with FWW SBA. Pt needed reminder to avoid excess hip flexion. After he completed gait training, pt returned to bed without belt SBA. BP at 155/69 HR 113. Call light within reach, pt denies discomfort. Gait Assessment Gait Gait Assistance Required: Standby Assistance,Contact Guard Assist Distance (Feet) 250 Able to Maintain Weight Bearing Status Yes During Gait Assistive Devices Assistive Device Gait Belt,Front Wheeled Walker Orthotic/Prosthetic Devices or Brace: No Gait Deviations General Gait Pattern Antalgic,Decreased Stride Length,Decreased Feet Clearance,Flexed Trunk,Step-to Gait,Wide Based Gait Factors Limiting Gait Function Factors Limiting Gait Function Decreased Activity Tolerance, Decreased Strength,Limited Range of Motion Comments Gait Comments pt cont amb with a antalgic gait along with R circumduction during RLE swing phase. But he was able to demonstrates step over pattern with good awareness of 50% WB on RLE. Stair Climbing Assessment Evaluation Level of Assist On Stairs Contact Guard Assistance Devices Stair Climbing Assistive Devices Left Railing,Right Railing Technique/Endurance Stair Climbing Direction Ascend and Descend Stair Climbing Technique Step to Step Number of Steps Climbed 3 Stair Climbing Set # Repetitions (reps) 2 Comments Stair Climbing Comments Educated pt to lead with LLE to ascend and with RLE to descend. Pt demonstrates good stability without signs of LOB . M5 PT-IP Objective Assessments Start: 07/25/19 08:44 Freq: NEEDED Status: Active Protocol: Document 07/25/19 11:02 AW (Rec: 07/25/19 11:34 AW [id number]) Orientation Orientation/Cognition Level of Alertness Confusional State Orientation Name,Month,Place,Situation Language Function Ability No Deficits Noted Safety Awareness Decreased Safety Awareness Comments Pt had difficulty recalling posterior hip precautions. Gross Range of Motion Upper Extremity ROM Assessment Within Functional Limits Lower Extremity ROM Assessment Right Impaired Strength Upper Extremity Strength Assessment Within Functional Limits Lower Extremity Strength Assessment Right Impaired Hip L 4/5 Knee L 5/5 Ankle B 4+/5 Coordination Assessment Gross Coordination Gross Coordination WNL Sensation Assessment Sensation Gross Sensation WNL Muscle Tone Muscle Tone WNL No Muscle Tone Location Bilateral Upper Extremity Severity of Tone Mild Manifistation of Tone Resting Tremors Comments Muscle Tone Comments Pt states BUE tremors were not present prior to surgery. M6 PT-IP Treatment Start: 07/25/19 08:44 Freq: NEEDED Status: Active Protocol: Document 07/25/19 15:44 AW (Rec: 07/25/19 15:59 AW [id number]) Physical Therapy Treatment Exercises Exercises Ankle Pumps,Gluteal Sets,Quad Sets,Heel Slides Education Education Provided Precautions,Weight Bearing Status,Safety Other Treatments Other Treatment Performed Reviewed clarification of WB status, including strategies for use of FWW to maintain 50% WB RLE M7 PT-IP Assessment and Plan Start: 07/25/19 08:44 Freq: NEEDED Status: Active Protocol: Document 07/26/19 09:30 HH (Rec: 07/26/19 10:45 HH [email or web address]) PT Summary Assessment and Plan Potential Rehabilitation Potential Good Status of Condition at Evaluation Evolving Summary Progress Towards Goals Progressing Toward Goals Assessment Summary Pt is Ax Ox 4 but his response to questions was somewhat slow possibly d/t dilaudid. Pt 's BP = 155/69 HR 113 post mobility. He improved with gait distance and able to climb stairs 3 steps x 2 with B rails CGA. However, pt was able to recall 1/3 post op precautions and needed reminder for gait mechanics and stair climbing. Pt will need a afternoon tx with CG for safety training at home. Goals Bed Mobility Goal Independent Transfer Goal Standby Assistance,Front Wheeled Walker Gait Goal Standby Assistance,Front Wheel Walker Gait Distance 150 Other Goals check BP CG training -up/down 2 stairs with SPC or LRAD to maintain 50% PWB RLE SBA Days to Meet Goals 4 Frequency of Treatment Frequency Of Treatment Twice a Day Treatment Plan Physical Therapy Treatment Plan Bed Mobility Training,Transfer Training,Gait Training, Therapeutic Exercise,Balance Retraining,Post Op Education, Discharge Planning,Hot or Cold Pack,Neuromuscular Re-ed, Coordination Retraining,Manual Therapy Recommendations To Nursing Amount of Assist Needed Standby Assistance Discharge Recommendations PT Discharge Recommendations Home with Assistance, Outpatient PT Other Discharge Recommendations home with assist and OP PT Transportation Needs at Discharge Private Vehicle
[2019-07-26 11:43] LABS: Hematocrit 19.6 % (41-53); Hemoglobin 6.8 g/dL (13.5-17.5)
[2019-07-26] MEDS: carvediloL 25 MG TABLET PO ×2 (12:23→20:35)
--- NOTE | 2019-07-26 15:43 | PT.IPTN ---
Current Diagnoses Broken internal right hip prosthesis, initial encounter (07/24/19) Surgery Performed Operation Date: 07/24/19 07:45 Actual Procedures p Total Hip Arthroplasty Revision - both components(Right) - Abhilash Connor MD Physical Therapy Treatment Note M2 PT-IP Current Condition Start: 07/25/19 08:44 Freq: NEEDED Status: Active Protocol: Document 07/25/19 11:02 AW (Rec: 07/25/19 11:34 AW [id number]) Physical Therapy Current Condition Current Condition Evaluation Date 07/25/19 Treatment Diagnosis R FRANKI revision, impaired mobility Onset Date 07/24/19 Precautions Posterior Hip Precautions No Hip Flexion > 90 degrees,No Hip Internal Rotation,No Hip Adduction Weight Bearing Status Weight Bearing Status Partial Weight Bearing Allowed Weight Bearing Amount (enter % 50% RLE or #) (%) M3 PT-IP Subjective Start: 07/25/19 08:44 Freq: NEEDED Status: Active Protocol: Document 07/26/19 15:25 SP (Rec: 07/26/19 17:02 SP [email or web address]) Subjective Physical Therapy Visit Type Type Treatment Note Visit Start Time 15:25 Visit Stop Time 15:43 Total Visit Minutes 18 Notes WB status has been clarified to 100# RLE or ~50% Number of MANAGER PLAY Visits 1 Physical Therapy Visit Comments Patient Comments Pt was resting in bed when arrived willing to work with PT. Patient Goals Pt hopes to discharge home with assist from his family Therapy Pain Assessment Pain When Pain Assessed During Mobility Pain Present Pain Present Pain Reported Location right hip Intensity 4 Scale Used Numeric (1 - 10) Pain Management Techniques Re-positioning,Timing of Activity with Medications M4 PT-IP Mobility and Gait Start: 07/25/19 08:44 Freq: NEEDED Status: Active Protocol: Document 07/26/19 15:25 SP (Rec: 07/26/19 17:02 SP [id number]) PT-Bed Mobility Assessment Supine to Sit Supine to Sit Standby Assistance,1 Person Assistance Scooting Scooting to Edge of Bed Standby Assistance PT-Transfer Assessment Sit to and From Stand Sit to and from Stand Contact Guard Assistance,1 Person Assistance,Use of Upper Extremities Equipment Transfer Assistive Device Gait Belt,Front Wheeled Walker Orthotic/Prosthetic Devices or Brace: No Transfers Transfer Destination Chair Transfer Technique pt ambulated usign FWW Transfer Ability Level of Assist Standby Assistance,Contact Guard Assistance,Use of Upper Extremities Comments Mobility Comments Supine to sitting SBA post education on use of gait belt for RLE reposition to EOB himself, scooted to EOB SBA. Sit to stand SBA- CGA using FWW and BUE good form pushing from bed to stand. Pt demonstrated good hip precautions during bed mobility, recalled 3/4. Pt did not understand how to demonstrate 50% WB RLE during step pivot bed to chair post discussion and demonstrated given. Tried foward step and backstep with improvement noted with cues. [facility]ned by deputy director of nursing per MANAGER PLAY request and call light and all needs inreach with nurse and temporary administrative assistant in room when left. Gait Assessment Gait Gait Assistance Required: Contact Guard Assist,Minimum Assistance,1 Person Assist Distance (Feet) 200 Able to Maintain Weight Bearing Status Yes During Gait Assistive Devices Assistive Device Gait Belt,Front Wheeled Walker Orthotic/Prosthetic Devices or Brace: No Gait Deviations General Gait Pattern Antalgic,Decreased Stride Length,Decreased Feet Clearance,Flexed Trunk,Step-to Gait,Wide Based Gait Factors Limiting Gait Function Factors Limiting Gait Function Decreased Activity Tolerance, Decreased Strength,Difficulty Following Directions,Limited Range of Motion,Pain,Poor Safety Awareness Comments Gait Comments Pt required continuous cuing for body within FWW close to back legs of FWW, and maintaining 50% WB on RLE, therapist supported slow/ stop of FWW and encouraged step to gait with quick transition of LLE to assist maintain WB status. Pt demonstrated wanting to perform step over step and FWW little out infront wtih RLE slightly out to side. [employer] assistant also cued him in hallway, keep feet inside walker with noted decreased follow through . Did not assess stair mgt due to decrease understanding and maintaining 50% WB druign gait, will try tomorrow. Stair Climbing Assessment Comments Stair Climbing Comments Did not assess this afternoon. PT-Balance Assessment Sitting Balance and Reactions Static Sitting Balance Ability Good Dynamic Sitting Balance Ability Good Standing Balance and Reactions Static Standing Balance Ability Good Dynamic Standing Balance Ability Fair Device Used FWW Comments Other Balance Tests/Deviations/Treatment Difficulty maintaing 50% WB : RLE during LLE advancement. M5 PT-IP Objective Assessments Start: 07/25/19 08:44 Freq: NEEDED Status: Active Protocol: Document 07/25/19 11:02 AW (Rec: 07/25/19 11:34 AW [id number]) Orientation Orientation/Cognition Level of Alertness Confusional State Orientation Name,Month,Place,Situation Language Function Ability No Deficits Noted Safety Awareness Decreased Safety Awareness Comments Pt had difficulty recalling posterior hip precautions. Gross Range of Motion Upper Extremity ROM Assessment Within Functional Limits Lower Extremity ROM Assessment Right Impaired Strength Upper Extremity Strength Assessment Within Functional Limits Lower Extremity Strength Assessment Right Impaired Hip L 4/5 Knee L 5/5 Ankle B 4+/5 Coordination Assessment Gross Coordination Gross Coordination WNL Sensation Assessment Sensation Gross Sensation WNL Muscle Tone Muscle Tone WNL No Muscle Tone Location Bilateral Upper Extremity Severity of Tone Mild Manifistation of Tone Resting Tremors Comments Muscle Tone Comments Pt states BUE tremors were not present prior to surgery. M6 PT-IP Treatment Start: 07/25/19 08:44 Freq: NEEDED Status: Active Protocol: Document 07/26/19 15:25 SP (Rec: 07/26/19 17:02 SP [email or web address]) Physical Therapy Treatment Education Education Provided Precautions,Weight Bearing Status,Safety Other Treatments Other Treatment Performed Reviewed strategies for use of FWW and LLE quick transition to maintain 50% WB RLE M7 PT-IP Assessment and Plan Start: 07/25/19 08:44 Freq: NEEDED Status: Active Protocol: Document 07/26/19 15:25 SP (Rec: 07/26/19 17:02 SP [email or web address]) PT Summary Assessment and Plan Potential Rehabilitation Potential Good Status of Condition at Evaluation Evolving Summary Impairments Pain,ROM,Strength,Balance, Cognition,Bed Mobility, Transfers,Gait,Activity Tolerance Progress Towards Goals Progressing Toward Goals Assessment Summary See mobility comments. Pt required SBA- CGA during most of mobility, required Robbi to slow fWW down and proper LLE quick transition during RLE WB to assist maintain 50% allowed, challenged follow through. Pt was able to maintain all other precautions during tx. MANAGER PLAY requested nursing provide chair alarm for patient for assist 1 person while mobile and proivide cuing for maintaining 50% WB RLE. PT recommends 1 person assist, continued education on 50% WB precautions safety, caregiver training and recheck stair mgt prior to DC, home with 24/7 assist, outpatient PT/OT.Pt was non symptomatic so did not check vitals during tx. Goals Bed Mobility Goal Independent Transfer Goal Standby Assistance,Front Wheeled Walker Gait Goal Standby Assistance,Front Wheel Walker Gait Distance 150 Other Goals check BP CG training -up/down 2 stairs with SPC or LRAD to maintain 50% PWB RLE SBA Days to Meet Goals 4 Frequency of Treatment Frequency Of Treatment Twice a Day Treatment Plan Physical Therapy Treatment Plan Bed Mobility Training,Transfer Training,Gait Training, Therapeutic Exercise,Balance Retraining,Post Op Education, Discharge Planning,Hot or Cold Pack,Neuromuscular Re-ed, Coordination Retraining,Manual Therapy Other Recommendations and Next Treatment review hip precautions; gait Focus training with FWW 50% PWB RLE; assess stairs if able; Recommendations To Nursing Amount of Assist Needed Standby Assistance Discharge Recommendations PT Discharge Recommendations Home with Assistance, Outpatient PT Other Discharge Recommendations home with assist and OP PT Transportation Needs at Discharge Private Vehicle
--- NOTE | 2019-07-26 15:47 | PC.NURSE ---
Addendum entered by Lizett Bonilla R.N. 07/26/19 21:12: Pt sat in chair for large part of evening. Received 1u PRBCs w/o incidence. HL intact/patent. Dsg CDI. B/P's have been higher today than yesterday. Satisfactory post op course. Call light w/in reach, bed alarm on for pt safety. Continue w/plan of care. Original Note: Pt working w/PT and ambulate into [place]. Lungs clear, SpO2 97% RA. Dsg to surgical hip CDI PRBC's infusing @ 1530 Denies discomfort at this time. Call light w/in reach.
[2019-07-26] MEDS: AMLODIPINE 5 MG TABLET 2.5 MG PO (20:31)
[2019-07-27 00:51] VITALS: BP 116/72; PULSE 72; RESP 16; TEMP 36.8; O2SAT 93
[2019-07-27 04:00] VITALS: BP 131/68; PULSE 86; RESP 16; TEMP 36.9; O2SAT 95
[2019-07-27] MEDS: HYDROMORPHONE 2 MG TABLET PO ×3 (04:26→14:14)
[2019-07-27 05:35] LABS: Hematocrit 21.8 % (41-53); Hemoglobin 7.5 g/dL (13.5-17.5)
--- NOTE | 2019-07-27 07:52 | PM.PNPO.1 ---
Subjective Subjective Date Patient Seen: 07/27/19 Time Patient Seen: 07:52 Interval history: Yesterday patient received 1 unit pRBC. Today's H/H 7.5/21.8 improved from 6.8/19.6. Patient's pain has improved since yesterday, rates 4/10 in anterior right hip. Has mobilized with PT. Voiding without difficulty. Denies fever, chills, chest pain, shortness of breath, nausea, vomiting, dizziness. Exam Vital Signs (past 8 hours): - 07/27/19 00:51 07/27/19 04:00 Temperature 98.2 F 98.5 F Pulse Rate 72 86 Respiratory Rate 16 16 Blood Pressure 116/72 131/68 Pulse Oximetry 93 95 Oxygen Delivery Method Room Air Oxygen Flow Rate 0 Narrative Exam Narrative: 84 year old male is lying comfortably in bed, in no apparent distress. A&Ox3. Dressing intact, in place, with moderate strikethrough drainage. SCDs in place. Sensory function grossly intact to light touch in LE BL. Able to actively dorsiflex/plantar flex BL. Calves warm, soft, compressible, non tender to palpation. Objective Labs Result Diagrams: 07/27/19 05:10 Labs: Laboratory Results - last 24 hr 07/26/19 07/26/19 07/27/19 11:30 13:37 05:10 Hgb 6.8 L* 7.5 L Hct 19.6 L* 21.8 L Blood Type O Positive Antibody Screen Negative Crossmatch See Detail Assessment & Plan Post-op Postoperative Procedures: Procedures Operation Date: 07/24/19 07:45 Actual Procedures Side Surgeon p Total Hip Arthroplasty Revision - both components Right Abhilash Connor MD Postoperative plan narrative: Continue current pain management Dressing change - replace aquacel Mobilize with PT SCDs for DVT prophylaxis Possible discharge home today or tomorrow pending PT clearance Time Spent With Patient Time with patient: less than 15 minutes Quality VTE Deep Vein Thrombosis/Pulmonary Embolism Present on Admission: No
[2019-07-27 08:00] VITALS: BP 137/68; PULSE 93; RESP 16; TEMP 37.1; O2SAT 97
[2019-07-27] MEDS: ASPIRIN EC 81 MG TABLET PO (08:38)
[2019-07-27] MEDS: hydroCHLOROthiazide 25 MG TABLET PO (08:38)
[2019-07-27] MEDS: FERROUS SULFATE 325 MG TABLET PO (08:38)
[2019-07-27] MEDS: DOCUSATE 100 MG CAPSULE PO (08:38)
[2019-07-27] MEDS: ASCORBIC ACID 500 MG TABLET PO (08:38)
[2019-07-27] MEDS: carvediloL 25 MG TABLET PO (08:38)
[2019-07-27] MEDS: ACETAMINOPHEN 325 MG TABLET 650 MG PO ×2 (08:38→14:14)
[2019-07-27] MEDS: ROSUVASTATIN 10 MG TABLET 5 MG PO (08:39)
[2019-07-27] MEDS: raNITIdine 150 MG CAPSULE PO (08:39)
[2019-07-27] MEDS: MAGNESIUM HYDROXIDE 30 ML UDC PO (08:40)
--- NOTE | 2019-07-27 09:22 | PC.NURSE ---
Addendum entered by Brigette Padilla R.N. 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 Addendum entered by Brigette Padilla R.N. 07/27/19 14:31: MS/PAIN - pt up with phys therapy, sister and son at [facility] for caregiving training, taken for stair practice, returned ambulatory to room, discussed pain mgt prior to discharge, given 2mg po dilaudid and 650mg po tylenol, discussed pt has laxatives at home, will take tonight and continue until he has a bm, hep lock dc'd, prior to discharge, pt assisted into br and had a bm. Addendum entered by Brigette Padilla R.N. 07/27/19 13:03: PAIN - sitting up in bed, gloria lunch, discussed pain mgt and declines narcotic at this time. Addendum entered by Brigette Padilla R.N. 07/27/19 12:08: MS/ - after up with phys therapy, using fww and limited WB, pt into br, voided with flatus, no bm, ret to bed and dulcolax suppos admin. Original Note: AM NOTE - pt is alert, states r hip discomfort 4 on scale 0/10 this am, denies sob or dizziness, bp 137/68 this am, hr 90, denies nausea, no abd discomfort, discussed bm, constipation and narcotics, passing flatus, given jatin, prune juice and mom this am, declines suppos at this time, aquacell with shadow drainage within margins.
--- NOTE | 2019-07-27 11:12 | PT.IPTN ---
Current Diagnoses Broken internal right hip prosthesis, initial encounter (07/24/19) Surgery Performed Operation Date: 07/24/19 07:45 Actual Procedures p Total Hip Arthroplasty Revision - both components(Right) - Abhilash Connor MD Physical Therapy Treatment Note M2 PT-IP Current Condition Start: 07/25/19 08:44 Freq: NEEDED Status: Active Protocol: Document 07/25/19 11:02 AW (Rec: 07/25/19 11:34 AW [id number]) Physical Therapy Current Condition Current Condition Evaluation Date 07/25/19 Treatment Diagnosis R FRANKI revision, impaired mobility Onset Date 07/24/19 Precautions Posterior Hip Precautions No Hip Flexion > 90 degrees,No Hip Internal Rotation,No Hip Adduction Weight Bearing Status Weight Bearing Status Partial Weight Bearing Allowed Weight Bearing Amount (enter % 50% RLE or #) (%) M3 PT-IP Subjective Start: 07/25/19 08:44 Freq: NEEDED Status: Active Protocol: Document 07/27/19 10:32 SP (Rec: 07/27/19 11:47 SP [id number]) Subjective Physical Therapy Visit Type Type Treatment Note Visit Start Time 10:32 Visit Stop Time 11:12 Total Visit Minutes 40 Notes WB Number of UNEMPLOYMENT BENEFITS CLAIMS TAKER Visits 2 Physical Therapy Visit Comments Patient Comments Pt willing to work with PT Patient Goals Pt plans to DC home with family this afternoon. Therapy Pain Assessment Pain Present Pain Present Denied Pain M4 PT-IP Mobility and Gait Start: 07/25/19 08:44 Freq: NEEDED Status: Active Protocol: Document 07/27/19 10:32 SP (Rec: 07/27/19 11:47 SP [id number]) PT-Bed Mobility Assessment Supine to Sit Supine to Sit Standby Assistance Sit to Supine Sit to Supine Standby Assistance Scooting Scooting to Edge of Bed Standby Assistance Scooting Up and Down in Bed Standby Assistance PT-Transfer Assessment Sit to and From Stand Sit to and from Stand Standby Assistance,Use of Upper Extremities Equipment Transfer Assistive Device Gait Belt,Front Wheeled Walker Orthotic/Prosthetic Devices or Brace: No Transfers Transfer Destination Bed,Chair Transfer Technique pt ambulated using FWW Transfer Ability Level of Assist Standby Assistance,Contact Guard Assistance,Use of Upper Extremities Comments Mobility Comments Supine <> sitting and scoot up /down in bed SBA, patient able to reposition RLE to EOB itself with while maintaining good hip precautions, use of UE to support RLE into bed. Sit to stand 1 UE push from bed while other on FWW with cue x1 for allowing RLE out in front to assist maintain >90 deg hip flexion precaution with good demonstration. UNEMPLOYMENT BENEFITS CLAIMS TAKER provided extensive education on 50% WB RLE allowed and BUE WB 50% through FWW during wt shift WB onto RLE to allow LLE transition and stay within allowance. Pt demonstrated 50% WB RLE most of the treatment but required additional cue x2 during pivot turn in bathroom after returned from hallway walk with improved demonstration. CGA during seated descent onto toilet, educated use of wall rail for stable support and RLE forward and slow transition to sit on toilet. Notified nursing patient was unable to perform BM during tx, but urine accident in bathroom, therapist assist clean up floor and change patient socks and CGA to assist to standing with use of rail and FWW downward pressure with good RLE out front as previously instructed. Pt was able to complete self hygiene when was in sitting. Pt returned to chair Step to gait use of FWW maintaining 50% WB and proper positioning of RLE front and slow descent follow through into chair. Nursing requested patient in bed for sopository assist so therapist provided CGA-SBA CPT using FWW chair to bed and SBA with patient demonstration of RLE into bed with good maintaining R hip precautions. Pt was left in bed with nursing educator in room to assist call light and all needs with patient. Gait Assessment Gait Gait Assistance Required: Standby Assistance,Contact Guard Assist,1 Person Assist Distance (Feet) 250 Able to Maintain Weight Bearing Status Yes During Gait Assistive Devices Assistive Device Gait Belt,Front Wheeled Walker Orthotic/Prosthetic Devices or Brace: No Gait Deviations General Gait Pattern Antalgic,Decreased Stride Length,Decreased Feet Clearance,Step-to Gait,Wide Based Gait Factors Limiting Gait Function Factors Limiting Gait Function Decreased Activity Tolerance, Decreased Strength,Difficulty Following Directions,Limited Range of Motion,Poor Safety Awareness Comments Gait Comments Pt improved in demonstration of maintaining 50% RLE WB status post education did require reminder x2 during pivot in bathroom CGA- SBA using FWW, supine<>sitting SBA , sit to stand from bed, chair and toilet with good BUE WB for self support and cued RLE foot front to support >90deg precaution with good follow through. Walked approx 250 ft using FWW step to gait with good BUE WB through FWW and not allowing >50% on RLE, reminders needed in bathroom during p ivot for same allowance with good follow through. CGA during all sit <> stands from bed, chair, toilet. Stair Climbing Assessment Comments Stair Climbing Comments Not assess this am, need to complete caregiver training with sister and stair mgt at 1pm today for safety DC home allowance PT-Balance Assessment Sitting Balance and Reactions Static Sitting Balance Ability Good Dynamic Sitting Balance Ability Good Standing Balance and Reactions Static Standing Balance Ability Good Dynamic Standing Balance Ability Fair Device Used FWW Comments Other Balance Tests/Deviations/Treatment Improved 50% WB, cued only : needed during turns in bathroom post education pre mobility. M5 PT-IP Objective Assessments Start: 07/25/19 08:44 Freq: NEEDED Status: Active Protocol: Document 07/25/19 11:02 AW (Rec: 07/25/19 11:34 AW [id number]) Orientation Orientation/Cognition Level of Alertness Confusional State Orientation Name,Month,Place,Situation Language Function Ability No Deficits Noted Safety Awareness Decreased Safety Awareness Comments Pt had difficulty recalling posterior hip precautions. Gross Range of Motion Upper Extremity ROM Assessment Within Functional Limits Lower Extremity ROM Assessment Right Impaired Strength Upper Extremity Strength Assessment Within Functional Limits Lower Extremity Strength Assessment Right Impaired Hip L 4/5 Knee L 5/5 Ankle B 4+/5 Coordination Assessment Gross Coordination Gross Coordination WNL Sensation Assessment Sensation Gross Sensation WNL Muscle Tone Muscle Tone WNL No Muscle Tone Location Bilateral Upper Extremity Severity of Tone Mild Manifistation of Tone Resting Tremors Comments Muscle Tone Comments Pt states BUE tremors were not present prior to surgery. M6 PT-IP Treatment Start: 07/25/19 08:44 Freq: NEEDED Status: Active Protocol: Document 07/27/19 10:32 SP (Rec: 07/27/19 11:47 SP [id number]) Physical Therapy Treatment Education Education Provided Precautions,Weight Bearing Status,Safety Other Treatments Other Treatment Performed Reviewed strategies for use of FWW and LLE quick transition to maintain 50% WB RLE and BUE WB through FWW. M7 PT-IP Assessment and Plan Start: 07/25/19 08:44 Freq: NEEDED Status: Active Protocol: Document 07/27/19 10:32 SP (Rec: 07/27/19 11:47 SP [id number]) PT Summary Assessment and Plan Potential Rehabilitation Potential Good Status of Condition at Evaluation Evolving Summary Impairments Pain,ROM,Strength,Balance, Cognition,Bed Mobility, Transfers,Gait,Activity Tolerance Progress Towards Goals Progressing Toward Goals Assessment Summary See mobility comments. Pt required SBA- CGA during most of mobility. PT recommends 1 person assist, continued education reminders on 50% WB precautions safety, caregiver training and recheck stair mgt prior to DC, home with 28/12 assist, outpatient PT/OT. Goals Bed Mobility Goal Independent Transfer Goal Standby Assistance,Front Wheeled Walker Gait Goal Standby Assistance,Front Wheel Walker Gait Distance 150 Other Goals CG training -up/down 2 stairs with SPC or LRAD to maintain 50% PWB RLE SBA Days to Meet Goals 4 Frequency of Treatment Frequency Of Treatment Twice a Day Treatment Plan Physical Therapy Treatment Plan Bed Mobility Training,Transfer Training,Gait Training, Therapeutic Exercise,Balance Retraining,Post Op Education, Discharge Planning,Hot or Cold Pack,Neuromuscular Re-ed, Coordination Retraining,Manual Therapy Other Recommendations and Next Treatment review hip precautions; gait Focus training with FWW 50% PWB RLE; assess stairs prior to DC Recommendations To Nursing Amount of Assist Needed 1 Person Assist Discharge Recommendations PT Discharge Recommendations Home with Assistance, Outpatient PT Other Discharge Recommendations home with assist and OP PT Transportation Needs at Discharge Private Vehicle
[2019-07-27] MEDS: BISACODYL 10 MG SUPP PR (11:17)
[2019-07-27] MEDS: SODIUM CHLORIDE 0.9% FLUSH 10 ML IV (11:17)
[2019-07-27 12:00] VITALS: BP 117/60; PULSE 84; RESP 16; TEMP 36.8; O2SAT 92
--- NOTE | 2019-07-27 13:39 | CM.DPNOTE ---
DC Note: DC order in place, pt has been cleared for return home by therapy team. Pt expected to DC back home w/family as expected, this afternoon. No barriers to DC or SW needs identified today. ROBER
--- NOTE | 2019-07-27 14:05 | PT.IPTN ---
Current Diagnoses Broken internal right hip prosthesis, initial encounter (07/24/19) Surgery Performed Operation Date: 07/24/19 07:45 Actual Procedures p Total Hip Arthroplasty Revision - both components(Right) - Abhilash Connor MD Physical Therapy Treatment Note M2 PT-IP Current Condition Start: 07/25/19 08:44 Freq: NEEDED Status: Discharge Protocol: Document 07/25/19 11:02 AW (Rec: 07/25/19 11:34 AW [id number]) Physical Therapy Current Condition Current Condition Evaluation Date 07/25/19 Treatment Diagnosis R FRANKI revision, impaired mobility Onset Date 07/24/19 Precautions Posterior Hip Precautions No Hip Flexion > 90 degrees,No Hip Internal Rotation,No Hip Adduction Weight Bearing Status Weight Bearing Status Partial Weight Bearing Allowed Weight Bearing Amount (enter % 50% RLE or #) (%) M3 PT-IP Subjective Start: 07/25/19 08:44 Freq: NEEDED Status: Discharge Protocol: Document 07/27/19 13:32 SP (Rec: 07/27/19 15:12 SP [id number]) Subjective Physical Therapy Visit Type Type Treatment Note Visit Start Time 13:32 Visit Stop Time 14:05 Total Visit Minutes 33 Notes WB status has been clarified to 100# RLE or ~50% Number of PRODUCT SUPPORT CONSULTANT Visits 3 Physical Therapy Visit Comments Patient Comments Pt willing to work with PT Patient Goals Completed caregiver training with sister and son during all mobility to go home with sister assisting him. Therapy Pain Assessment Pain Present Pain Present Denied Pain M4 PT-IP Mobility and Gait Start: 07/25/19 08:44 Freq: NEEDED Status: Discharge Protocol: Document 07/27/19 13:32 SP (Rec: 07/27/19 15:12 SP [id number]) PT-Bed Mobility Assessment Supine to Sit Supine to Sit Standby Assistance Scooting Scooting to Edge of Bed Standby Assistance PT-Transfer Assessment Sit to and From Stand Sit to and from Stand Standby Assistance,Contact Guard Assistance,Use of Upper Extremities Equipment Transfer Assistive Device Gait Belt,Front Wheeled Walker Orthotic/Prosthetic Devices or Brace: Yes Transfers Transfer Destination Chair,Wheelchair Transfer Technique pt ambulated using FWW Transfer Ability Level of Assist Standby Assistance,Contact Guard Assistance,Use of Upper Extremities Comments Mobility Comments Supine to sitting HOB flat to assimulate home. Pt recalled 2 /3 R hip precautions, reviewed 3rd no IR seated, supine and turning R in standing while R LE planted on floor while provided family education as well. PRODUCT SUPPORT CONSULTANT provided caregiver training with sister and patient's son for awareness and giving patient feedback on 50% WB RLE and maintaining all 3/3 precautions with verbal understanding and follow through demonstration. supine > sitting and to scoot forward to EOB himself with good demonstration keeping BLE apart SBA provided by sister. Sister donned gait belt and provided CGA sit to stand, PRODUCT SUPPORT CONSULTANT cued for patient to push up from bed to stand not use FWW, good R foot out in front to maintain >90 deg R hip flexion . Pt was able to walk with heavy BUE WB onto FWW while maintaining 50% WB RLE into hallway approx 50 ft before suggested sit in w/c (good reach back and slow descent with RLE out in front to maintain >90 deg hip flexion) and assisted transported to stairs for rest break so not to tire before stair mgt. PRODUCT SUPPORT CONSULTANT instructed patient and family on retro stepping 1 plateform step x2 sets using FWW for WB to allow <50% RLE WB while LLE transitions retro to step to ascend 1 step x2 sets assimulating home front enterance. Instructed forward descent with good >90 deg hip flexion and maintaining RLE leading descent then with BUE WB on FWW >50% and RLE <50% WB transition LLE to step down, sister and son provided CGA to low -Min A throughout stair mgt, no LOB and stable. All 3 felt comfortable and understood reasoning behind retro ascend with good demonstration for maintaining safety WB precautions. Pt was able to ambulate further distance 252 ft with good demonstration of 50% WB on RLE and more through BUE on FWW while sister provided CGA and w/c trail, patient declined w/ c rest break x2 suggestions apprx 252 ft. Pt was up in chair when returned with chair alarm donned, calll light and all needs inreach when left. PRODUCT SUPPORT CONSULTANT discussed success of tx with nurse and suggested patient is ableto go home with sister to assist him when medically cleared. PT recommending 24/ assist from sister and outpatient PT already set up for Wednesday appt . Gait Assessment Gait Gait Assistance Required: Standby Assistance,Contact Guard Assist,1 Person Assist Distance (Feet) 252 Able to Maintain Weight Bearing Status Yes During Gait Assistive Devices Assistive Device Gait Belt,Front Wheeled Walker Orthotic/Prosthetic Devices or Brace: No Gait Deviations General Gait Pattern Antalgic,Decreased Stride Length,Decreased Feet Clearance,Step-to Gait,Wide Based Gait Factors Limiting Gait Function Factors Limiting Gait Function Decreased Activity Tolerance, Decreased Strength,Difficulty Following Directions,Limited Range of Motion,Poor Safety Awareness Comments Gait Comments Pt improved in demonstration of maintaining 50% RLE WB status post education did require reminder x1, supine<> sitting SBA, sit to stand from bed and w/c with good follow through RLE foot front to support >90deg precaution. Walked approx 252 ft using FWW step to gait with good BUE WB through FWW and not allowing >50% on RLE, reminders needed during R turn to R LE pivot to maintain no IR RLE precaution. CGA during all sit <> stands from bed, w/ c provided by sister. Stair Climbing Assessment Evaluation Level of Assist On Stairs Contact Guard Assistance, Minimal Assistance,1 Person Assistance,2 Person Assistance Devices Stair Climbing Assistive Devices Front Wheel Walker Technique/Endurance Stair Climbing Direction Ascend and Descend Stair Climbing Technique Step to Step Number of Steps Climbed 1 Stair Climbing Set # Repetitions (reps) 2 Comments Stair Climbing Comments Retro ascend, forward descend using FWW, CGA- min provided by sister and son CGA as needed, heavy WB through BUE an d<50% WB RLE to allow LLE ascend leading then transition RLE and Min for assisting FWW to step, stable no LOB. Forward descend Robbi reposition FWW from step down to next maintaining 50% WB and then heavy BUE WB on FWW to lead RLE descent then transition LLE. 1 step x2 sets to assimulate front house 2 plateform step. Garage 2 step mgt didn't have rails to provide BUE support so recommended using front enterance with verbal confirmation. PT-Balance Assessment Sitting Balance and Reactions Static Sitting Balance Ability Good Dynamic Sitting Balance Ability Good Standing Balance and Reactions Static Standing Balance Ability Good Dynamic Standing Balance Ability Fair Device Used FWW Comments Other Balance Tests/Deviations/Treatment Improved 50% WB RLE, cued only : x1 needed during R turns in hallway to lead RLE to maintain no IR RLE post with good follow through and family stated will continue to be aware and give cuing as well. M5 PT-IP Objective Assessments Start: 07/25/19 08:44 Freq: NEEDED Status: Discharge Protocol: Document 07/25/19 11:02 AW (Rec: 07/25/19 11:34 AW [id number]) Orientation Orientation/Cognition Level of Alertness Confusional State Orientation Name,Month,Place,Situation Language Function Ability No Deficits Noted Safety Awareness Decreased Safety Awareness Comments Pt had difficulty recalling posterior hip precautions. Gross Range of Motion Upper Extremity ROM Assessment Within Functional Limits Lower Extremity ROM Assessment Right Impaired Strength Upper Extremity Strength Assessment Within Functional Limits Lower Extremity Strength Assessment Right Impaired Hip L 4/5 Knee L 5/5 Ankle B 4+/5 Coordination Assessment Gross Coordination Gross Coordination WNL Sensation Assessment Sensation Gross Sensation WNL Muscle Tone Muscle Tone WNL No Muscle Tone Location Bilateral Upper Extremity Severity of Tone Mild Manifistation of Tone Resting Tremors Comments Muscle Tone Comments Pt states BUE tremors were not present prior to surgery. M6 PT-IP Treatment Start: 07/25/19 08:44 Freq: NEEDED Status: Discharge Protocol: Document 07/27/19 13:32 SP (Rec: 07/27/19 15:12 SP [id number]) Physical Therapy Treatment Education Education Provided Precautions,Weight Bearing Status,Safety M7 PT-IP Assessment and Plan Start: 07/25/19 08:44 Freq: NEEDED Status: Discharge Protocol: Document 07/27/19 13:32 SP (Rec: 07/27/19 15:12 SP [id number]) PT Summary Assessment and Plan Potential Rehabilitation Potential Good Status of Condition at Evaluation Evolving Summary Impairments Pain,ROM,Strength,Balance, Cognition,Bed Mobility, Transfers,Gait,Activity Tolerance Progress Towards Goals Progressing Toward Goals Assessment Summary See mobility comments. Pt required SBA- CGA during most of mobility use of FWW 50% WB RLE, CGA- min 1-2 person retro 2 plateform step, see comments. PT recommends 1 person assist, continued education reminders on 50% WB precautions safety, caregiver training completed with sister and son. PT recommending home with sister to provide 24/ assist, outpatient PT already set up. Goals Bed Mobility Goal Independent Transfer Goal Standby Assistance,Front Wheeled Walker Gait Goal Standby Assistance,Front Wheel Walker Gait Distance 150 Other Goals CG training -up/down 2 stairs with SPC or LRAD to maintain 50% PWB RLE SBA Days to Meet Goals 4 Frequency of Treatment Frequency Of Treatment Twice a Day Treatment Plan Physical Therapy Treatment Plan Bed Mobility Training,Transfer Training,Gait Training, Therapeutic Exercise,Balance Retraining,Post Op Education, Discharge Planning,Hot or Cold Pack,Neuromuscular Re-ed, Coordination Retraining,Manual Therapy Other Recommendations and Next Treatment review hip precautions; gait Focus training with FWW 50% PWB RLE; assess stairs prior to DC Recommendations To Nursing Amount of Assist Needed Standby Assistance Discharge Recommendations PT Discharge Recommendations Home with 24/7 Assist, Outpatient PT Other Discharge Recommendations home with assist and OP PT Transportation Needs at Discharge Private Vehicle
--- NOTE | 2019-08-09 16:06 | PM.DS.1 ---
History of Present Illness History of Present Illness Date Patient Seen: 07/27/19 Time Patient Seen: 07:19 Chief complaint: [id number] Narrative: Indications: Subsided right femoral stem, leg length discrepancy. Please see progress note for HPI. Discharge Providers Provider Date of admission: 07/24/19 05:54 Discharge Date: 07/27/19 Primary care physician: Raghav Carpenter MD Consults: 07/24/19 06:00 Consult to Anesthesiology Routine Comment: Consulting Provider: Anesthesiologist Reason for consultation: Regional block for post operative pain control 07/24/19 12:51 Consult to Discharge Planning Routine Comment: Consult to Physical Therapy Evaluate & Treat Comment: Physician Instructions: post op FRANKI protocol Consult to Respiratory Therapy Evaluate & Treat Comment: Physician Instructions: Evaluate and treat Discharge provider: Jasvir Sanabria PA-C Summary Hospital Course Discharge Diagnosis: s/p right total hip arthroplasty revision anemia due to blood loss from surgerya aortic valve disorder coronary artery disease chronic kidney disease, stage III cardiomyopathy GERD hx of colon polyps hypertension orthostatic hypotension osteoarthritis pulmonary sarcoidosis peripheral vascular disease renal insufficiency stenosis of peripheral vascular stent Hospital Course: Patient admitted to hospital s/p right total hip arthroplasty revision with Dr. Connor. POD #3 patient was ready for discharge home. Hospital course was notable for anemia due to blood loss from surgery with symptomatic hypotension. POD#2 patient received 1 unit pRBC. H/H 7.5/21.8 improved from 6.8/19.6 on POD#3 and patient was asymptomatic. Patient had marginal pain control which resolved with change in pain medication to dilaudid 2mg PO. He was mobilizing with PT prior to discharge. Patient was voiding and eating without difficulty or assistance prior to discharge. ASA 81mg BID for 6 weeks for DVT prophylaxis. Discharged home with dilaudid, tylenol and ibuprofen for pain control. Status at Discharge Cognitive/behavioral status at discharge: oriented Functional status at discharge: uses cane/walker Overall status at discharge: patient is progressing back to baseline Time Spent with Patient Time spent: Less than 30 minutes Exam Vital Signs (past 8 hours): Oxygen Delivery Method Room Air Oxygen Flow Rate 0 Narrative Exam Narrative: 84 year old male is lying comfortably in bed, in no apparent distress. A&Ox3. Dressing intact, in place, with moderate strikethrough drainage. SCDs in place. Sensory function grossly intact to light touch in LE BL. Able to actively dorsiflex/plantar flex BL. Calves warm, soft, compressible, non tender to palpation. Objective Labs Result Diagrams: 07/27/19 05:10 Discharge Plan Discharge Plan Patient Disposition: Home Discharge orders & Medications Prescriptions: New hydromorphone [Dilaudid] 2 mg tablet 2 mg PO Q4-6H PRN (Reason: pain (scale score 7-10)) Qty: 40 RF: 0 Continued carvedilol 25 mg Tablet 25 mg PO BID RF: 0 omega-3 fatty acids 1,000 mg Capsule 1,000 mg PO DAILY RF: 0 amlodipine 5 mg Tablet 2.5 mg PO DAILY RF: 0 ranitidine HCl 150 mg Capsule 150 mg PO BID RF: 0 hydrochlorothiazide 25 mg Tablet 25 mg PO DAILY RF: 0 rosuvastatin 5 mg Tablet 5 mg PO DAILY RF: 0 cholecalciferol (vitamin D3) [Vitamin D3] 25 mcg (1,000 unit) Capsule 25 mcg PO DAILY RF: 0 Changed aspirin 81 mg Tablet,Delayed Release (Dr/Ec) 81 mg PO BID Qty: 0 RF: 0 Discontinued ibuprofen 200 mg Tablet 200 mg PO Q6H PRN (Reason: Pain) RF: 0 Follow up/Referrals: Raghav Carpenter MD [Primary Care Provider] - Abhilash Connor MD [Physician] - As previously scheduled Macie Garcia MD [Physician] - Diet/Activity/Treatments Diet: Low-protein/Renal Activity: weight bearing as tolerated. total arthroplasty posterior hip precautions Cold/Heat Therapy: continue cold therapy as needed Skin/Wound/Dressing Care Report to your healthcare provider any signs of infection, such as:: chills, fever, increased pain, unusual drainage and unusual redness Dressing: can use aquacel dressing in shower. do not soak (e.g. bath). contact office for dressing changes. Visit Report/Discharge Packet Instructions: DI for Hip Replacement, DI for Constipation, How to Prevent Falls, DI for Prescription Opioid Use Stand Alone Forms: Surgery Discharge Discharge Data Primary Care Provider: Raghav Carpenter Discharges patient from system. Discharge Date/Time: 07/27/19 15:00 Quality VTE Deep Vein Thrombosis/Pulmonary Embolism Present on Admission: No
== END 2019-07-27 15:00 | disposition home or self-care (01) | DRG 467 ==
PROVIDERS: Physician Assistant; Physician Assistant Medical; Admitting Provider Orthopaedic Surgery Adult Reconstructive Orthopaedic Surgery; Family Provider Family Medicine; PCP Family Medicine; Referring Provider Orthopaedic Surgery; Visit Provider Orthopaedic Surgery Adult Reconstructive Orthopaedic Surgery
PROC: 0SR902A Replacement of Right Hip Joint with Metal on Polyethylene Synthetic Substitute, Uncemented, Open Approach (ICD-10-PCS; principal; 2019-07-24 07:45)
DX: T84.030A Mechanical loosening of internal right hip prosthetic joint, initial encounter (principal); D62 Acute posthemorrhagic anemia; I42.9 Cardiomyopathy, unspecified; I95.9 Hypotension, unspecified; N18.3 Chronic kidney disease, stage 3 (moderate); Y79.2 Prosthetic and other implants, materials and accessory orthopedic devices associated with adverse incidents; I12.9 Hypertensive chronic kidney disease with stage 1 through stage 4 chronic kidney disease, or unspecified chronic kidney disease; E78.5 Hyperlipidemia, unspecified; I73.9 Peripheral vascular disease, unspecified; I25.10 Atherosclerotic heart disease of native coronary artery without angina pectoris; K21.9 Gastro-esophageal reflux disease without esophagitis
CPT/HCPCS: 36415; 36430; 73502; 76000; 85014; 85018; 85025; 86850; 86900; 86901; 87070; 87205; 94762; 97110; 97116; 97161; 97530; C1776; P9016; J0690; J1100; J1885; J2250; J2270; J2274; J2405; J2704; J3010

== ENCOUNTER → 2020-06-11 06:42 | Outpatient (CLI) | payer MEDICARE, OTHER, SELFPAY ==
[2019-07-24 13:29] VITALS: BMI 21.6
--- NOTE | 2020-06-11 | DI.MRI.S_ITS ---
PROCEDURE: MR ORBITS FACE NECK WO/W CON INDICATIONS: Malignant (primary) neoplasm, unspecified TECHNIQUE: Sagittal/axial/coronal T1 spin echo and STIR. After the administration of contrast, axial/coronal/sagittal T1 fast spin echo with fat saturation through the neck. COMPARISON: [facility], RG, CT SOFT TISSUE NECK WITH CONTRAST, 04/04/2020, 14:20. FINDINGS: Image quality: Excellent. Lymph nodes: There is interval decrease in size of a previously left level 2 lymph node on the prior CT dated 04/04/20. Currently this measures 10 x 9 mm, without definite pathologic enlargement Vessels: Visualized vasculature appears normal, with normal flow voids and enhancement. Neck spaces: The oropharynx, nasopharynx and pharynx are unremarkable, without mucosal lesions seen. Vocal cords, false vocal cords, pyriform sinuses, epiglottis, vallecula, and tongue base all appear normal. Extramucosal spaces of the neck also appear unremarkable. Glands: The parotid and submandibular glands appear normal. Thyroid is grossly unremarkable Miscellaneous: Visualized brain and orbits appear normal. Lung apices appear clear. Superficial soft tissues appear normal. Visualized sinuses and mastoids appear clear. Bones: Multilevel cervical spondylosis and facet arthropathy. IMPRESSION: A previously noted left level 2 lymph node on the prior outside comparison CT has decreased in size since 04/04/20. No pathologically enlarged lymphadenopathy is seen. Dictated by: Aron Martinez M.D. on 06/13/2020 at 15:41 Approved by: Aron Martinez M.D. on 06/13/2020 at 15:51
== END ==
PROVIDERS: PCP Family Medicine; Referring Provider Otolaryngology; Visit Provider Otolaryngology
DX: C14.2 Malignant neoplasm of Waldeyer's ring; C77.9 Secondary and unspecified malignant neoplasm of lymph node, unspecified; R59.0 Localized enlarged lymph nodes
CPT/HCPCS: 70543

== ENCOUNTER → 2020-07-15 16:20 | Oncology outpatient (ONC) | payer MEDICARE, OTHER, SELFPAY ==
[2019-07-24 13:29] VITALS: BMI 21.6
--- NOTE | 2020-06-24 15:48 | P.CONONC_ITS ---
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 Back in 04/2020, he noted a lump when shaving. He was seen by his PCP Dr. Raghav Carpenter, who ordered CT and referred him to [facility] Brower. On 04/04/2020, CT neck with contrat showed left neck adenopathy adjacent to the angle of he mandible the largest node measuring 1.4 x 2[address] Tong described a 2-3 cm firm, mobile mass in the left neck level III. He did not see any suspicious findings on flexible laryngoscopy. The patient und erwent left neck FNA on 04/10/2020 which revealed SCC, p16+. 05/22/2020 PET scan showed mild asymmetrically uptake in the left lateral oral pharynx wall or left lateral tongue base (mSUV 4.6), a 1.2 x 1.4 cm left level II cervical lymph node (mSUV 5), and a couple of subcentimer left level II lymph nodes (mSUV 3.6 and 3.7), and no other hypermetabolic metastasis. According to patient, the lump disappeared after FNA. When Lilly Brower saw the patient again on 05/27/2020, he was not able to definitely palpate the mass. Dr. Tong discussed with patient about tonsillectomy and possible neck dissection. However, the patient was reluctant as he was caring or his elderly at home and for his autistic child. He was then referred the patient to radiation oncology and medical oncology for discussion of definitive chemotherapy and RT. Dr. Fran Ying saw the patient on 06/10/2020, and recommended left neck dissection with possible left tonsillectomy and /or left base of tongue biopsy in order to confirm primary site of origin and completion of staging. On 06/11/2020, MR orbits and head and neck showed that a previously noted left level 2 lymph node has decreased in size since 04/04/2020. On 06/13/2020, Isis Hernandez saw the patient. 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 Clinically T2N1 HPV+ SCC. Dr. Rodrigez referred the patient to the [facility] for surgical evaluation. Patient has already set up the appointment to see Dr. Irby on 07/03/2020. He feels fine. He denies cough, sore throat, ear-plugging occasionally on the left. No sob, no cp, no nausea, no vomiting, good appetite, no abd pain, no diarrhea, no blood in the stool. CC: Rome Lassiter MD Patient reports pain?: No Home Medications and Allergies Home Medications Medication Instructions Recorded Confirmed Type amlodipine 2.5 mg PO DAILY 07/18/19 07/24/19 History carvedilol 25 mg PO BID 07/18/19 07/24/19 History hydrochlorothiazide 25 mg PO DAILY 07/18/19 07/24/19 History omega-3 fatty acids 1,000 mg PO DAILY 07/18/19 07/24/19 History rosuvastatin 5 mg PO DAILY 07/18/19 07/24/19 History cholecalciferol (vitamin D3) 25 mcg PO DAILY 07/24/19 07/24/19 History [Vitamin D3] aspirin 81 mg PO BID #0 tab 07/27/19 07/24/19 Rx Allergies Allergy/AdvReac Type Severity Reaction Status Date / Time No Known Drug Allergies Allergy Verified 07/24/19 06:47 Medical History - Medical, Surgical, Family History Medical History: Medical History (Last Updated 06/24/20 @ 16:06 by Rome Lassiter MD) Aortic valve disorder CAD (coronary artery disease) Cardiomyopathy CKD (chronic kidney disease), stage III GERD (gastroesophageal reflux disease) History of colon polyps HTN (hypertension) Orthostatic hypotension Onset Date: 01/31/15 Osteoarthritis Personal history of rectal cancer Postoperative anemia Pulmonary sarcoidosis PVD (peripheral vascular disease) Renal insufficiency Stenosis of peripheral vascular stent Onset Date: ~2009 Surgical History: Surgical History (Last Updated 06/30/20 @ 16:47 by Rome Lassiter MD) History of arthroplasty of left hip Onset Date: 01/31/15 History of arthroplasty of right hip Onset Date: ~09/2013 History of lymph node excision History of total right hip arthroplasty Onset Date: ~07/24/19 Hx of bilateral cataract extraction Hx of cardiac catheterization Onset Date: ~04/2013 Hx of heart artery stent Onset Date: ~2007 - Social History Smoking Status: Never smoker Substance Use Type: does not use Alcohol Intake: current (occasionally) Review of Systems All systems PM: reviewed and no additional remarkable complaints except as stated Exam Vital signs: 06/30/20 17:10 Last Vital Signs Temp 97.5 F L 06/24/20 15:53 Pulse 80 06/24/20 15:53 Resp 16 06/24/20 15:53 BP 135/86 06/24/20 15:53 Pulse Ox 98 06/24/20 15:53 - Constitutional positive no acute distress, positive average body habitus, positive cooperative - Routine HEENT Exam Head: Present: normocephalic, atraumatic Eye: Present: EOMI, PERRL, normal accommodation. Absent: conjunctival icterus ENT: Present: mucous membranes moist, oropharynx clear - Routine Neck Exam Present: supple. Absent: lymphadenopathy, thyromegaly, tenderness, swelling - Routine Chest/Breast/Axilla Exam Axillae: Absent: lymphadenopathy - Routine Respiratory Exam Present: Clear to auscultation bilaterally. Absent: wheezes - Routine Cardiovascular Exam Present: RRR, S1, S2. Absent: murmur, gallop, rubs - Routine Abdominal Exam Present: soft. Absent: tenderness, distended, organomegaly - Routine Extremities Exam Absent: edema - Routine Neurological Exam Present: alert, oriented X3, CN II-XII intact, sensory deficit, motor deficit - Routine Psychiatric Exam Present: normal affect Results - Labs Laboratory Last Values WBC 8.6 X10^3/uL (4.5-11.0) 06/24/20 16:29 RBC 4.67 X10^6/uL (4.5-5.9) 06/24/20 16:29 Hgb 14.5 g/dL (13.5-17.5) 06/24/20 16:29 Hct 42.6 % (41-53) 06/24/20 16:29 MCV 91.1 fL (80-100) 06/24/20 16:29 MCH 31.1 PG (26-34) 06/24/20 16:29 MCHC 34.1 % (30-36) 06/24/20 16:29 RDW 13.7 % (11.6-14.8) 06/24/20 16:29 Plt Count 178 X10^3/uL (150-400) 06/24/20 16:29 Neut % (Auto) 66.8 % (50-75) 06/24/20 16:29 Lymph % (Auto) 19.8 % (25-40) L 06/24/20 16:29 [place] % (Auto) 9.8 % (3-14) 06/24/20 16:29 Eos % (Auto) 3.0 % (2-4) 06/24/20 16:29 Baso % (Auto) 0.6 % (0-2) 06/24/20 16:29 Neut # (Auto) 5700 /uL (9752-8790) 06/24/20 16: Lymph # (Auto) 1700 /uL (4182-4253) 06/24/20 16: [place] # (Auto) 800 /uL (0-900) 06/24/20 16: Eos # (Auto) 300 /uL (0-450) 06/24/20 16: Baso # (Auto) 0 /uL (0-100) 06/24/20 16:29 Sodium 140 mmol/L (137-145) 06/24/20 16:29 Potassium 4.0 mmol/L (3.4-5.1) 06/24/20 16: Chloride 102 mmol/L (98-107) 06/24/20 16: Carbon Dioxide 31 mmol/L (22-32) 06/24/20 16:29 BUN 19 mg/dL (9-20) 06/24/20 16: Creatinine 1.14 mg/dL (0.66-1.25) 06/24/20 16:29 Estimated GFR > 60.0 mL/min (>60) 06/24/20 16:29 BUN/Creatinine Ratio 16.7 (6-22) 06/24/20 16: Glucose 108 mg/dL (80-110) 06/24/20 16: Calcium 10.9 mg/dL (8.4-10.2) H 06/24/20 16:29 Total Bilirubin 0.9 mg/dL (0.2-1.3) 06/24/20 16:29 AST 52 IU/L (17-59) 06/24/20 16:29 ALT 41 IU/L (<50) 06/24/20 16:29 Alkaline Phosphatase 98 U/L (38-126) 06/24/20 16:29 Total Protein 8.6 g/dL (6.3-8.2) H 06/24/20 16:29 Albumin 4.8 g/dL (3.5-5.0) 06/24/20 16:29 Globulin 3.8 g/dL (1.7-4.1) 06/24/20 16:29 Albumin/Globulin Ratio 1.3 (1.0-2.8) 06/24/20 16:29 - Imaging Additional studies: Procedures Hip bearing surface, [id number] (09/20/13) Removal of Synthetic Substitute from Right Hip Joint, Open Approach (07/24/19) Replacement of Right Hip Joint with Metal on Polyethylene Synthetic Substitute, Uncemented, Open Approach (07/24/19) Supplement Right Hip Joint, Acetabular Surface with Liner, Open Approach (07/24/19) Total hip replacement (02/04/15) Assessment and Plan (1) Squamous cell carcinoma of left tonsil 85 year old male, younger than stage age, with good ECOG 0-1, was diagnosed with left neck metastatic SCC p16+ after FNA of a left neck level II lymph node on 04/10/2020. Staging PET on 05/22/2020 showed mild asymmetrically uptake in the left lateral oral pharynx wall or left lateral tongue base (mSUV 4.6) in addition to left level II cervical lymph nodes with abnormal uptake, but no distant metastasis. Thus, it was deemed that most likely he a left tonsillar SCC with metastatic scot disease, clinically T2N1 HPV+. Dr. Rodrigez referred the patient to the [facility] for surgical evaluation. Patient has already set up the appointment to see Dr. Irby on 07/03/2020. I talked with patient that I will schedule follow up visit in 3 week after his consult with Dr. Irby.
[2020-06-24 15:53] VITALS: BP 135/86; PULSE 80; RESP 16; TEMP 36.4; O2SAT 98
[2020-06-24 16:40] LABS: Add Manual Diff / Slide Review NO; Basophils Absolute Auto 0 /uL (0-100); Basophils Percent Auto 0.6 % (0-2); Eosinophils Absolute Auto 300 /uL (0-450); Hematocrit 42.6 % (41-53); Hemoglobin 14.5 g/dL (13.5-17.5); Lymphocytes Absolute Auto 1700 /uL (1100-4500); Lymphocytes Percent Auto 19.8 % (25-40); Mean Corpuscular HGB Conc 34.1 % (30-36); Mean Corpuscular Hemoglobin 31.1 PG (26-34); Mean Corpuscular Volume 91.1 fL (80-100); Monocytes Absolute Auto 800 /uL (0-900); Monocytes Percent Auto 9.8 % (3-14); Neutrophils Absolute Auto 5700 /uL (1500-7000); Neutrophils Percent Auto 66.8 % (50-75); Platelet Count 178 X10^3/uL (150-400); Red Blood Cell Count 4.67 X10^6/uL (4.5-5.9); Red Cell Distribution Width 13.7 % (11.6-14.8); White Blood Cell Count 8.6 X10^3/uL (4.5-11.0)
[2020-06-24 16:52] LABS: Alanine Aminotransferase 41 IU/L (<50); Albumin 4.8 g/dL (3.5-5.0); Albumin Globulin Ratio 1.3 (1.0-2.8); Alkaline Phosphatase 98 U/L (38-126); Aspartate Aminotransferase 52 IU/L (17-59); BUN Creatinine Ratio 16.7 (6-22); Bilirubin Total 0.9 mg/dL (0.2-1.3); Blood Urea Nitrogen 19 mg/dL (9-20); Calcium 10.9 mg/dL (8.4-10.2); Carbon Dioxide 31 mmol/L (22-32); Chloride 102 mmol/L (98-107); Estimated Glomerular Filt Rate > 60.0 mL/min (>60); Globulin 3.8 g/dL (1.7-4.1); Glucose 108 mg/dL (80-110); HEMOLYSIS < 15 (0-50); Sodium 140 mmol/L (137-145); Total Protein 8.6 g/dL (6.3-8.2)
[2020-07-15 16:51] VITALS: BP 171/83; PULSE 78; RESP 16; TEMP 35.8; O2SAT 97
--- NOTE | 2020-07-15 16:57 | ONC.PN ---
PN -Subjective Interval history: ID/CC: 85 year old male with squamous cell carcinoma of the head and neck History of Present Illness: Fran Hobson is a 85 year old male. In 03/2020, he noted a lump when shaving. On 04/04/2020, CT neck with contrast showed left neck adenopathy adjacent to the angle of the mandible the largest node measuring 1.4 x 2.0 x 3.2. cm. He underwent left neck FNA on 04/10/2020 which revealed SCC, p16+. On 05/22/2020 PET scan showed mild asymmetrically uptake in the left lateral oral pharynx wall or left lateral tongue base (mSUV 4.6), a 1.2 x 1.4 cm left level II cervical lymph node (mSUV 5), and a couple of subcentimer left level II lymph nodes (mSUV 3.6 and 3.7), and no other hypermetabolic metastasis. According to patient, the lump disappeared after FNA. When Lilly Brower saw the patient again on 05/27/2020, he was not able to definitely palpate the mass. Dr. Tong discussed with patient about tonsillectomy and possible neck dissection. However, the patient was reluctant as he was caring or his elderly at home and for his autistic child. He was then referred the patient to radiation oncology and medical oncology for discussion of definitive chemotherapy and RT. Dr. Fran Ying saw the patient on 06/10/2020, and recommended left neck dissection with possible left tonsillectomy and /or left base of tongue biopsy in order to confirm primary site of origin and completion of staging. On 06/11/2020, MR orbits and head and neck showed that a previously noted left level 2 lymph node has decreased in size since 04/04/2020. On 06/13/2020, Isis Hernandez saw the patient. 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 Clinically T2N1 HPV+ SCC. Dr. Rodrigez referred the patient to the [facility] for surgical evaluation. Interim Events: On 07/03/2020, based on [facility] - Head and Neck Oncology Tumor Board Note, primary surgery for resection was recommended. According to patient, the surgery has been scheduled for 08/06/2020. Clinically, he said that he has not noticed any new signs or symptoms since his previous visit. He especially mentioned that he was not able to palpate any neck lumps. He denies headache, double vision or blurred vision - Additional ROS All systems PM: reviewed and no additional remarkable complaints except as stated Home Medications and Allergies Home Medications Medication Instructions Recorded Confirmed Type amlodipine 2.5 mg PO DAILY 07/18/19 07/15/20 History carvedilol 25 mg PO BID 07/18/19 07/15/20 History hydrochlorothiazide 25 mg PO DAILY 07/18/19 07/15/20 History omega-3 fatty acids 1,000 mg PO DAILY 07/18/19 07/15/20 History rosuvastatin 5 mg PO DAILY 07/18/19 07/15/20 History cholecalciferol (vitamin D3) 25 mcg PO DAILY 07/24/19 07/15/20 History [Vitamin D3] aspirin 81 mg PO BID #0 tab 07/27/19 07/15/20 Rx Allergies Allergy/AdvReac Type Severity Reaction Status Date / Time No Known Drug Allergies Allergy Verified 07/24/19 06:47 Exam Vital signs: Vital Signs Temp Pulse Resp BP Pulse Ox 07/15/20 16:51 96.5 F L 78 16 171/83 H 97 Intake and Output 07/15/20 07/15/20 07/15/20 07:59 15:59 23:59 Other: Weight 76.4 kg Patient Weight 07/15/20 23:59 Weight 76.4 kg - Constitutional positive no acute distress, positive average body habitus, positive cooperative - Routine HEENT Exam Head: Present: normocephalic, atraumatic Eye: Present: EOMI, PERRL, normal accommodation. Absent: conjunctival icterus - Routine Neck Exam Present: supple. Absent: lymphadenopathy, thyromegaly - Routine Chest/Breast/Axilla Exam Axillae: Absent: lymphadenopathy - Routine Respiratory Exam Present: Clear to auscultation bilaterally. Absent: wheezes - Routine Cardiovascular Exam Present: RRR, S1, S2. Absent: murmur, gallop, rubs - Routine Abdominal Exam Present: soft. Absent: tenderness, organomegaly - Routine Extremities Exam Absent: edema - Routine Neurological Exam Present: alert, oriented X3, CN II-XII intact. Absent: sensory deficit, motor deficit - Routine Psychiatric Exam Present: normal affect Results - Labs Laboratory Last Values WBC 8.6 X10^3/uL (4.5-11.0) 06/24/20 16: RBC 4.67 X10^6/uL (4.5-5.9) 06/24/20 16: Hgb 14.5 g/dL (13.5-17.5) 06/24/20 16: Hct 42.6 % (41-53) 06/24/20 16: MCV 91.1 fL (80-100) 06/24/20 16: MCH 31.1 PG (26-34) 06/24/20 16: MCHC 34.1 % (30-36) 06/24/20 16: RDW 13.7 % (11.6-14.8) 06/24/20 16: Plt Count 178 X10^3/uL (150-400) 06/24/20 16: Neut % (Auto) 66.8 % (50-75) 06/24/20 16: Lymph % (Auto) 19.8 % (25-40) L 06/24/20 16: [place] % (Auto) 9.8 % (3-14) 06/24/20 16: Eos % (Auto) 3.0 % (2-4) 06/24/20: Baso % (Auto) 0.6 % (0-2) 06/24/20 16: Neut # (Auto) 5700 /uL (5139-8777) 06/24/20 16: Lymph # (Auto) 1700 /uL (4232-2112) 06/24/20 16: [place] # (Auto) 800 /uL (0-900) 06/24/20 16: Eos # (Auto) 300 /uL (0-450) 06/24/20 16: Baso # (Auto) 0 /uL (0-100) 06/24/20 16: Sodium 140 mmol/L (137-145) 06/24/20 16: Potassium 4.0 mmol/L (3.4-5.1) 06/24/20 16: Chloride 102 mmol/L (98-107) 06/24/20 16: Carbon Dioxide 31 mmol/L (22-32) 06/24/20 16:29 BUN 19 mg/dL (9-20) 06/24/20 16:29 Creatinine 1.14 mg/dL (0.66-1.25) 06/24/20 16:29 Estimated GFR > 60.0 mL/min (>60) 06/24/20 16:29 BUN/Creatinine Ratio 16.7 (6-22) 06/24/20 16:29 Glucose 108 mg/dL (80-110) 06/24/20 16:29 Calcium 10.9 mg/dL (8.4-10.2) H 06/24/20 16:29 Total Bilirubin 0.9 mg/dL (0.2-1.3) 06/24/20 16:29 AST 52 IU/L (17-59) 06/24/20 16:29 ALT 41 IU/L (<50) 06/24/20 16:29 Alkaline Phosphatase 98 U/L (38-126) 06/24/20 16:29 Total Protein 8.6 g/dL (6.3-8.2) H 06/24/20 16:29 Albumin 4.8 g/dL (3.5-5.0) 06/24/20 16:29 Globulin 3.8 g/dL (1.7-4.1) 06/24/20 16:29 Albumin/Globulin Ratio 1.3 (1.0-2.8) 06/24/20 16:29 - Imaging Additional studies: Procedures Hip bearing surface, [id number] (09/20/13) Removal of Synthetic Substitute from Right Hip Joint, Open Approach (07/24/19) Replacement of Right Hip Joint with Metal on Polyethylene Synthetic Substitute, Uncemented, Open Approach (07/24/19) Supplement Right Hip Joint, Acetabular Surface with Liner, Open Approach (07/24/19) Total hip replacement (02/04/15) Assessment and Plan (1) Squamous cell carcinoma of left tonsil 85 year old male, younger than stated age. He was diagnosed with left tonsillar SCC, cT2,N1, HPV+, via FNA of left neck level II lymph node on 04/10/2020 PET on 05/22/2020 showed left ora pharynx/lateral tongue, left level II node, but no evidence of distant metastasis [facility] Head and Neck Oncology Tumor Board of 07/03/2020 recommended primary surgery for resection. According to patient, surgical procedures have been scheduled for 08/06/2020. I talked with patient that I will schedule follow up visit in 3 week after the surgery on 08/06/2020. I talked with him that based on the surgical findings, we will discuss about what the next step would be. I talked with him that most likely patient may need postoperative radiation therapy and / or chemotherapy. Patient voiced understanding. Plan: Surgery 08/06/[address] Irby Return to clinic the third week of August
--- NOTE | 2020-08-21 10:17 | ONC.SCHED ---
per email from Patient [employer], medicare/[employer] shows his :35 instead of the date he states is correct which is 35. I will let patient know when he comes in 08/22/20 and have him call the social security/medicare office and get it corrected.
--- NOTE | 2020-08-22 14:28 | ONC.SCHED ---
patient is being seen by a provider at [facility] (I asked several time for the md's name however he had the TV turned up so loud our conversation was difficult), he stated he will call us when he'd like to get back on Dr Lassiter's schedule
== END ==
PROVIDERS: PCP Family Medicine; Referring Provider Otolaryngology; Visit Provider Internal Medicine Hematology & Oncology
DX: C09.9 Malignant neoplasm of tonsil, unspecified (principal)
CPT/HCPCS: 36415; 80053; 85025; 99204; 99214